=== PATIENT | male | born 1960 | race Caucasian/White ===

== ENCOUNTER 2020-02-21 14:54 | Outpatient (CLI) | payer OTHER, SELFPAY ==
[2020-02-21 15:21] LABS: Alanine Aminotransferase 28 U/L (4-50); Albumin Level 4.7 g/dL (3.5-5.1); Alkaline Phosphatase 63 U/L (38-126); Anion Gap 8 mmol/L (8-16); Aspartate Amino Transferase 24 U/L (17-59); Bilirubin,Total 0.7 mg/dL (0.2-1.3); Blood Urea Nitrogen 16 mg/dL (9-20); Calcium 9.3 mg/dL (8.4-10.2); Carbon Dioxide 23 mmol/L (22-30); Chloride 106 mmol/L (98-107); Cholesterol 192 mg/dL (0-200); Estimated Glomerular Filt Rate > 60; Glucose 135 mg/dL (75-110); HDL Direct 54 mg/dL; Potassium 3.9 mmol/L (3.4-5.0); Sodium 137 mmol/L (137-145); Triglycerides 83 mg/dL (<150)
[2020-02-21 15:25] LABS: Hemoglobin A1C 7.7 % (<5.7)
[2020-02-21 15:32] LABS: LDL Cholesterol Direct 122 mg/dL
[2020-02-21 15:40] LABS: Microalbumin Urine Random 6.4 mg/L (0-16.7)
[2020-02-21 15:52] LABS: Prostate Specific Antigen 1.2 ng/mL (< OR = 4.0)
== END 2020-02-21 14:55 | disposition home or self-care (01) ==
PROVIDERS: PCP Internal Medicine; Visit Provider Internal Medicine
DX: E11.65 Type 2 diabetes mellitus with hyperglycemia (principal); I10 Essential (primary) hypertension; E78.5 Hyperlipidemia, unspecified; Z12.5 Encounter for screening for malignant neoplasm of prostate
CPT/HCPCS: 36415; 80053; 80061; 82043; 83036; 84153; G0103

== ENCOUNTER 2020-09-15 09:10 | Outpatient (CLI) | payer OTHER, SELFPAY ==
[2020-09-15 09:42] LABS: Hemoglobin A1C 8.1 % (<5.7)
[2020-09-15 09:59] LABS: Alanine Aminotransferase 35 U/L (4-50); Albumin Level 4.1 g/dL (3.5-5.1); Alkaline Phosphatase 68 U/L (38-126); Anion Gap 5 mmol/L (8-16); Aspartate Amino Transferase 26 U/L (17-59); Bilirubin,Total 0.6 mg/dL (0.2-1.3); Blood Urea Nitrogen 15 mg/dL (9-20); Carbon Dioxide 30 mmol/L (22-30); Chloride 101 mmol/L (98-107); Cholesterol 202 mg/dL (0-200); Estimated Glomerular Filt Rate > 60; Glucose 235 mg/dL (75-110); HDL Direct 41 mg/dL; Potassium 4.2 mmol/L (3.4-5.0); Sodium 136 mmol/L (137-145); Triglycerides 137 mg/dL (<150)
[2020-09-15 10:10] LABS: LDL Cholesterol Direct 135 mg/dL
== END 2020-09-15 09:11 | disposition home or self-care (01) ==
LOC: ANHLAB 09:12
PROVIDERS: PCP Internal Medicine; Visit Provider Internal Medicine
DX: E11.65 Type 2 diabetes mellitus with hyperglycemia (principal); I10 Essential (primary) hypertension; E78.5 Hyperlipidemia, unspecified
CPT/HCPCS: 36415; 80053; 80061; 83036

== ENCOUNTER 2020-12-21 09:43 | Outpatient (CLI) | payer OTHER, SELFPAY ==
[2020-12-21 10:17] LABS: Alanine Aminotransferase 60 U/L (4-50); Albumin Level 4.6 g/dL (3.5-5.1); Alkaline Phosphatase 69 U/L (38-126); Anion Gap 8 mmol/L (8-16); Aspartate Amino Transferase 45 U/L (17-59); Bilirubin,Total 0.4 mg/dL (0.2-1.3); Blood Urea Nitrogen 14 mg/dL (9-20); Calcium 9.5 mg/dL (8.4-10.2); Carbon Dioxide 26 mmol/L (22-30); Chloride 105 mmol/L (98-107); Cholesterol 176 mg/dL (0-200); Estimated Glomerular Filt Rate > 60; Glucose 200 mg/dL (75-110); HDL Direct 43 mg/dL; Potassium 4.4 mmol/L (3.4-5.0); Sodium 139 mmol/L (137-145); Triglycerides 116 mg/dL (<150)
[2020-12-21 10:28] LABS: LDL Cholesterol Direct 104 mg/dL
[2020-12-21 11:19] LABS: Prostate Specific Antigen 1.2 ng/mL (< OR = 4.0)
[2020-12-21 11:56] LABS: Hemoglobin A1C 9.1 % (<5.7)
== END 2020-12-21 09:44 | disposition home or self-care (01) ==
LOC: ANHLAB 09:46
PROVIDERS: PCP Internal Medicine; Visit Provider Internal Medicine
DX: I10 Essential (primary) hypertension (principal); Z79.899 Other long term (current) drug therapy; E78.5 Hyperlipidemia, unspecified; Z12.5 Encounter for screening for malignant neoplasm of prostate; E11.65 Type 2 diabetes mellitus with hyperglycemia
CPT/HCPCS: 36415; 80053; 80061; 83036; 84153; G0103

== ENCOUNTER 2021-05-18 08:47 | Outpatient (CLI) | payer OTHER, SELFPAY ==
[2021-05-18 09:44] LABS: Alanine Aminotransferase 56 U/L (4-50); Albumin Level 4.4 g/dL (3.5-5.1); Alkaline Phosphatase 86 U/L (38-126); Anion Gap 8 mmol/L (8-16); Aspartate Amino Transferase 32 U/L (17-59); Bilirubin,Total 0.3 mg/dL (0.2-1.3); Blood Urea Nitrogen 27 mg/dL (9-20); Calcium 9.2 mg/dL (8.4-10.2); Carbon Dioxide 22 mmol/L (22-30); Chloride 105 mmol/L (98-107); Cholesterol 204 mg/dL (0-200); Estimated Glomerular Filt Rate > 60; Glucose 199 mg/dL (65-110); HDL Direct 39 mg/dL; Potassium 4.2 mmol/L (3.4-5.0); Sodium 135 mmol/L (137-145); Triglycerides 189 mg/dL (<150)
[2021-05-18 09:55] LABS: LDL Cholesterol Direct 130 mg/dL
[2021-05-18 11:53] LABS: Hemoglobin A1C 7.7 % (<5.7)
== END 2021-05-18 08:48 | disposition home or self-care (01) ==
LOC: ANHLAB 08:49
PROVIDERS: PCP Internal Medicine; Visit Provider Internal Medicine
DX: E11.65 Type 2 diabetes mellitus with hyperglycemia (principal); I10 Essential (primary) hypertension; E78.5 Hyperlipidemia, unspecified
CPT/HCPCS: 36415; 80053; 80061; 83036

== ENCOUNTER 2021-11-27 14:58 | Outpatient (CLI) | payer OTHER, SELFPAY ==
[2021-11-27 16:47] LABS: Alanine Aminotransferase 34 U/L (6-50); Albumin Level 4.5 g/dL (3.5-5.1); Alkaline Phosphatase 59 U/L (38-126); Anion Gap 8 mmol/L (8-16); Aspartate Amino Transferase 30 U/L (17-59); Bilirubin,Total 0.7 mg/dL (0.2-1.3); Blood Urea Nitrogen 16 mg/dL (9-20); Calcium 8.9 mg/dL (8.4-10.2); Carbon Dioxide 21 mmol/L (22-30); Chloride 108 mmol/L (98-107); Cholesterol 162 mg/dL (0-200); Estimated Glomerular Filt Rate > 60; Glucose 118 mg/dL (65-110); HDL Direct 49 mg/dL; Potassium 3.9 mmol/L (3.4-5.0); Sodium 137 mmol/L (137-145); Triglycerides 104 mg/dL (<150)
[2021-11-27 16:58] LABS: LDL Cholesterol Direct 92 mg/dL
[2021-11-27 17:26] LABS: Creatinine Urine 106.5 mg/dL
[2021-11-27 21:13] LABS: Hemoglobin A1C 6.6 % (<5.7)
[2021-11-27 21:19] LABS: Microalbumin Urine Random < 6.0 mg/L (0-16.7)
[2021-11-27 21:20] LABS: MALB Creatinine Ratio < 5.6 mg/g (0-30)
== END 2021-11-27 14:59 | disposition home or self-care (01) ==
LOC: ANHLAB 15:00
PROVIDERS: PCP Internal Medicine; Visit Provider Internal Medicine
DX: E78.5 Hyperlipidemia, unspecified (principal); E11.65 Type 2 diabetes mellitus with hyperglycemia; I10 Essential (primary) hypertension; Z51.81 Encounter for therapeutic drug level monitoring; Z79.899 Other long term (current) drug therapy
CPT/HCPCS: 36415; 80053; 80061; 82043; 83036

== ENCOUNTER 2022-07-01 12:39 | Outpatient (CLI) | payer OTHER, SELFPAY ==
[2022-07-01 19:03] LABS: Alanine Aminotransferase 30 U/L (6-50); Albumin Level 4.7 g/dL (3.5-5.1); Alkaline Phosphatase 71 U/L (38-126); Anion Gap 7 mmol/L (8-16); Aspartate Amino Transferase 25 U/L (17-59); Bilirubin,Total 0.4 mg/dL (0.2-1.3); Blood Urea Nitrogen 16 mg/dL (9-20); Calcium 9.2 mg/dL (8.4-10.2); Carbon Dioxide 26 mmol/L (22-30); Chloride 106 mmol/L (98-107); Cholesterol 177 mg/dL (0-200); Estimated Glomerular Filt Rate > 60; Glucose 127 mg/dL (65-110); HDL Direct 47 mg/dL; Potassium 3.8 mmol/L (3.4-5.0); Sodium 139 mmol/L (137-145); Triglycerides 122 mg/dL (<150)
[2022-07-01 19:14] LABS: LDL Cholesterol Direct 99 mg/dL
[2022-07-01 19:37] LABS: Prostate Specific Antigen 1.5 ng/mL (< OR = 4.0)
[2022-07-01 19:39] LABS: Hemoglobin A1C 6.6 % (<5.7)
== END 2022-07-01 12:40 | disposition home or self-care (01) ==
LOC: ANHLAB 12:41
PROVIDERS: PCP Internal Medicine; Visit Provider Internal Medicine
DX: Z51.81 Encounter for therapeutic drug level monitoring (principal); Z79.899 Other long term (current) drug therapy; I10 Essential (primary) hypertension; E11.65 Type 2 diabetes mellitus with hyperglycemia; E78.5 Hyperlipidemia, unspecified; Z12.5 Encounter for screening for malignant neoplasm of prostate
CPT/HCPCS: 36415; 80053; 80061; 83036; 84153; G0103

== ENCOUNTER 2024-07-20 07:39 | Outpatient (CLI) | payer OTHER, SELFPAY ==
[2024-07-20 08:15] LABS: Hemoglobin A1C 5.7 % (<5.7)
[2024-07-20 08:16] LABS: Alanine Aminotransferase 30 U/L (6-50); Albumin Level 4.6 g/dL (3.5-5.1); Alkaline Phosphatase 57 U/L (38-126); Anion Gap 9 mmol/L (4-12); Aspartate Amino Transferase 28 U/L (17-59); Bilirubin,Total 0.8 mg/dL (0.2-1.3); Blood Urea Nitrogen 18 mg/dL (9-20); Calcium 9.4 mg/dL (8.4-10.2); Carbon Dioxide 25 mmol/L (22-30); Chloride 104 mmol/L (98-107); Cholesterol 189 mg/dL (0-200); Estimated Glomerular Filt Rate > 60; Glucose 146 mg/dL (65-110); HDL Direct 47 mg/dL; Potassium 3.8 mmol/L (3.4-5.0); Sodium 138 mmol/L (137-145); Triglycerides 88 mg/dL (<150)
[2024-07-20 08:27] LABS: LDL Cholesterol Direct 123 mg/dL
--- OUTSIDE RECORDS SUMMARY | 2024-07-21 21:17 | XMS_ITS ---
Author Organization [facility] Address [address] [place] [address] Phone Care Team Providers Care Business Transformation Analyst Name Role Phone Unavailable Unavailable Unavailable Plan of Treatment No Plan of Treatment Recorded Assessments Includes: Assessments for all patient encounters No Assessments Recorded Medical Equipment - Implanted Devices Includes: Current and historical Devices No Medical Equipment Recorded Medications Administered Includes: Administered Medications in patient's chart No Administered Medications Recorded Results Includes: Results from 07/21/2023 through 07/21/2024 No Results Recorded For Specified Dates History of Present Illness History of Present Illness not supported for this document type No History of Present Illness Recorded Social History No Social History Recorded - Smoking Status Unknown Medical History Includes: Medical History in patient's chart No Medical History Recorded Family History Includes: Family History in patient's chart No Family History Recorded Review of Systems Review of Systems not supported for this document type No Review of Systems Recorded Mental Status No Mental Status Recorded Functional Status No Functional Status Recorded Physical Exam Physical Exam not supported for this document type No Physical Exam Recorded Clinical Notes Includes: Signed Clinical Notes starting from 07/18/2022 No Clinical Notes Recorded
--- OUTSIDE RECORDS SUMMARY | 2024-07-21 21:17 | XMS_ITS | Clinical Summary ---
Author Organization [facility] Address [address] [place] [address] Phone Care Team Providers Care Scale Shooter Name Role Phone Unavailable Unavailable Unavailable Reason for Visit and Chief Complaint NEW PATIENT VISIT Plan of Treatment No Plan of Treatment Recorded Assessments Includes: Assessments from this encounter No Assessments Recorded Medical Equipment - Implanted Devices Includes: Current Devices No Medical Equipment Recorded Medications Administered Includes: Administered Medications from this encounter No Administered Medications Recorded Results Includes: Results discussed during this encounter No Results Recorded For Specified Dates History of Present Illness Includes: History of Present Illness from this encounter No History of Present Illness Recorded Social History No Social History Recorded - Smoking Status Unknown Medical History Includes: Medical History addressed during this encounter No Medical History Recorded Family History Includes: Family History addressed during this encounter No Family History Recorded Review of Systems Includes: Review of Systems from this encounter No Review of Systems Recorded Mental Status Includes: Mental Status from this encounter No Mental Status Recorded Functional Status Includes: Functional Status from this encounter No Functional Status Recorded Physical Exam Includes: Physical Exam from this encounter No Physical Exam Recorded Encounters Encounter Provider Location Date Check-In Time Check- Out Time Diagnosis NEW PATIENT VISIT [facility] 1:15PM 11:59PM Clinical Notes Includes: Clinical Notes from this encounter No Clinical Notes Recorded
--- OUTSIDE RECORDS SUMMARY | 2024-07-21 21:17 | XMS_ITS ---
Care Plan - [facility] Created on: July 21, 2024 CHARLES WESLEY : 1960 Sex: Male Author Organization [facility] Address [address] [place] [address] Phone Care Team Providers Care Server Software Engineer Name Role Phone Unavailable Unavailable Unavailable
--- OUTSIDE RECORDS SUMMARY | 2024-07-21 21:17 | XMS_ITS | Clinical Summary ---
Author Organization [facility] Address [address] [place] [address]. [place], [place] [id number] [place] [id number] Care Team Providers Care Stick Welder Name Role Phone Unavailable Primary Care Provider Unavailabl e Social History Tobacco Use Types Packs/Day Years Used Date Smoking Tobacco: Never Assessed Sex and Gender Information Value Date Recorded Sex Assigned at Not on file Legal Sex Male 7:01 PM CDT Gender Identity Not on file Sexual Orientation Not on file Plan of Treatment Health Maintenance Due Date Last Done Comments Colorectal Cancer Screening Colonoscopy (10 Years) 1960 Annual Physical 10/29/1962 Hepatitis C 10/29/1977 DTaP, Tdap and Td Vaccines ( 1 - Tdap) 10/29/1978 Zoster Vaccines (1 of 2) 10/29/2009 COVID-19 Vaccine ( - 2023-2 5 season) 2024 Influenza Adult (#1) 2024 RSV Immunization or 60+ Years (1 - 1-dose 75+ series) 10/29/2034 Meningococcal Vaccine Aged Out No lamonte skyler eligible based on patient's age to complete this topic Pneumococcal Vaccine: Pediat rics (0 to 5 Years) and At-Risk Patients (6 to 64 Years) Aged Out No longer eligible b ased on patient's age to complete this topic RSV Immunizations Under 20 Months Aged Out No longer eligible based on patient's age to complete this topic
--- OUTSIDE RECORDS SUMMARY | 2024-07-21 21:18 | XMS_ITS ---
Author Organization [facility] [employer] Address [address] [place] [address] Care Team Providers Care Certified Travel Counselor Name Role Phone Edith Snider Unavailable [phone] Allergies No Known Allergies REASON FOR VISIT follow up 6 months Medications Medication SIG (Take, Route, Frequency, Duration) Notes Start Date End Date Status amLODIPine Besylate 10 MG Oral 08/31/2023 Active ARIPiprazole 5 MG 1 tablet at bedtime Orally Once a day for 90 days 03/01/2024 Active LORazepam 0.5 MG Oral 08/31/2023 Ac tive Mounjaro 5 MG/0.5ML Subcutaneous *Reorder fro m Med[employer]pan for eRx and Interaction Alerts* 08/31/2023 Active hydrOXYzine HCl 50 MG 1 tablet Oral three times a day for 90 days d/c 25 mg dose 08/31/2023 Active Social History Tobacco Use: Social History Observation Description Date Details (start date - stop date) Never Smoker NA - NA Sex Assigned At : Social History Observation Description Sex Assigned At Male Tobacco Control (Standard) Question Answer Notes Tobacco use: Nonsmoker Problems Problem Type SNOMED Code ICD Code Onset Dates Problem Status W/U Status Risk Notes Problem Generalized anxiety disorder (65821534) Generalized anxiety disorder (F41.1) 4 Active confirmed Problem Mild recurrent major depression (45362290) Major depressive disorder, recurrent, mild (F33.0) 4 Active confirmed Problem Intermittent explosive disorder (14549875) Intermittent explosive disorder (F63.81) 4 Active confirmed Problem 890152710 Marijuana use (F12.90) Active confirmed Problem Long-term current use of drug therapy (576252164) [facility] [place] [facility] (Z79.899) 4 Active confirmed Vital Signs Blood pressure systolic 161 mm Hg 03/01/20 24 Blood pressure diastolic 101 mm Hg 024 Heart Rate 97 /min 03/01/2024 Height 68.00 in 03/01/2024 Weight 216 lbs 03/01/2024 BMI 32.84 kg/m2 03/01/2024 Height-cm 172.72 cm 03/01/2024 Weight-kg 97.98 kg 03/01/2024 Encounters Encounter Location Date Provider Diagnosis [facility] [address] [place] [address] 03/01/2024 Edith Snider Generalized anxiety disorder F41.1 ; Major depressive disorder, recurrent, mild F33.0 ; Intermittent explosive disorder F63.81 ; Marijuana use F12.90 and [facility] [place] drug therapy Z79.899 Assessments Encounter Date Diagnosis (ICD Code) Assessment Notes Treatment Notes Treatment Clinical Notes Section Notes 03/01/2024 Generalized anxiety disorder (ICD-10 - F41.1) 1. Mild recurrent major depression -obtain labs PCP monitor educated on all medications, benefits, side effects and risk, and educated on depression, anxiety, and mood d/o and educated on compliance of medications, metabolic and movement d/o education appointment's, continue therapy discussion with patient about course of treatmentand patient instructions. Recommend decrease/stop cannabis use as it can negatively impact mood, motivation, anxiety, sleep, focus/concentratio n/memory (vigilance, elasticity, processing and attention); can also contribute to development of psychosis. Cannabis/marijuana information: http_s://che.nih. gov/publications/d rugfacts/cannabis- marijuana http_s://www.Sitedesk.Post-i/cannabi o-omq-chdhtwlc-mar ijuana-adhd/ http_s://www.murray. org/Equkj-Cbxboj-P llness/Mental-Heal th-Conditions http_s://psychcent Actimo.com/depression /jza-zfgjeefhy-cjy hhdrf-dj-ybbyezqiq n#treatments http__s://www.nimh .nih.gov/health/to pics/mental-health -medications http__s://www.murray .org/About-Mental- Illness/Treatments /Rmormd-Vzfxzl-Ami ications educated on all medications, benefits, side effects and risk, and educated on depression, anxiety, and ADHD, mood d/o and educated on compliance of medications, metabolic and movement d/o education appointment's, continue therapy discussion with patient about course of treatment and patient instructions. education on serotonin syndrome Discussed and educated pt regarding benzodiazepines are generally not intended for prolonged use and that use can cause tolerance, dependence, depression, and associated memory issues including dementias (this list is not exhaustive). Benzodiazepine use is generally not recommended concurrently with pain medications and/or other controlled substances 2. Generalized anxiety disorder - no control substance prescribed by [facility] r/t cannabis use daily Increase Vistaril 50 mg three times a day for anxiety patient been taking Benzo mg daily PCP prescribed and not prescribing presently not taking on weekends only work days,- patient reported has new PCP- Dr. Sesay Discussed and educated pt regarding benzodiazepines are generally not intended for prolonged use and that use can cause tolerance, dependence, depression, and associated memory issues including dementias (this list is not exhaustive). Benzodiazepine use is generally not recommended concurrently with pain medications and/or other controlled substances due to increased risks of profound sedation, respiratory depression, coma, and even . They are not to be used with any alcohol, as this combination can also be lethal. Patient was provided caution pcp prescribed Lorazepam 3. Intermittent explosive disorder - discuss and educated on options rx- will add ABILIFY 5 MG AT BEDTIME Second generation antipsychotics (SGAs) have metabolic syndrome issues with weight gain, increase in prolactin, increased waist circumference, increased lipids, and increased glucose. Thus routine monitoring of weight, metabolic labs, etc. is indicated. A general rank ordering of antipsychotics that have the greatest to the least risk of metabolic effects is olanzapine, quetiapine, risperidone, ziprasidone, and aripiprazole. However, weight gain can occur with all of these drugs and considerable variability exists among patients receiving the same drug regarding the risk of metabolic effects. Anti-psychotic agents not only increase the risk of metabolic disorder, they also increase the risk of CVA, akathisia, and movement disorders including EPS or tardive dyskinesia (more common with first generation antipsychotics) and more. Elderly- discussed risks, cognition, sedation, falls, metabolic, movement and atypical antipsychotics carry a black-box warning for increased risk of and cerebrovascular events in dementia. Medication Management and Follow-Up - Plan: - Schedule follow-up appointments every 1-3 months to monitor the patient's response to the medication regimen. - Reinforce the importance of avoiding recreational drug use due to potential neurotoxicity and interactions with prescribed medications. 4. Long-term drug therapy -no control substance prescribed by [facility] r/t cannabis use daily 03/01/2024 Major depressive disorder, recurrent, mild (ICD-10 - F33.0) 1. Mild recurrent major depression -obtain labs PCP monitor educated on all medications, benefits, side effects and risk, and educated on depression, anxiety, and mood d/o and educated on compliance of medications, metabolic and movement d/o education appointment's, continue therapy discussion with patient about course of treatmentand patient instructions. Recommend decrease/stop cannabis use as it can negatively impact mood, motivation, anxiety, sleep, focus/concentratio n/memory (vigilance, elasticity, processing and attention); can also contribute to development of psychosis. Cannabis/marijuana information: http_s://che.nih. gov/publications/d rugfacts/cannabis- marijuana http_s://www.TheTakes/cannabi l-fwo-ifmddebv-mar ijuana-adhd/ http_s://www.murray. org/Mfwpi-Cqtsws-D llness/Mental-Heal th-Conditions http_s://Novariant.com/depression /mcy-jddtbaats-wer qsfev-ke-tfqbbetdh n#treatments http__s://www.nimh .nih.gov/health/to pics/mental-health -medications http__s://www.murray .org/About-Mental- Illness/Treatments /Rvnxkw-Vaipac-Isl ications educated on all medications, benefits, side effects and risk, and educated on depression, anxiety, and ADHD, mood d/o and educated on compliance of medications, metabolic and movement d/o education appointment's, continue therapy discussion with patient about course of treatment and patient instructions. education on serotonin syndrome Discussed and educated pt regarding benzodiazepines are generally not intended for prolonged use and that use can cause tolerance, dependence, depression, and associated memory issues including dementias (this list is not exhaustive). Benzodiazepine use is generally not recommended concurrently with pain medications and/or other controlled substances 2. Generalized anxiety disorder - no control substance prescribed by [facility] r/t cannabis use daily Increase Vistaril 50 mg three times a day for anxiety patient been taking Benzo mg daily PCP prescribed and not prescribing presently not taking on weekends only work days,- patient reported has new PCP- Dr. Sesay Discussed and educated pt regarding benzodiazepines are generally not intended for prolonged use and that use can cause tolerance, dependence, depression, and associated memory issues including dementias (this list is not exhaustive). Benzodiazepine use is generally not recommended concurrently with pain medications and/or other controlled substances due to increased risks of profound sedation, respiratory depression, coma, and even . They are not to be used with any alcohol, as this combination can also be lethal. Patient was provided caution pcp prescribed Lorazepam 3. Intermittent explosive disorder - discuss and educated on options rx- will add ABILIFY 5 MG AT BEDTIME Second generation antipsychotics (SGAs) have metabolic syndrome issues with weight gain, increase in prolactin, increased waist circumference, increased lipids, and increased glucose. Thus routine monitoring of weight, metabolic labs, etc. is indicated. A general rank ordering of antipsychotics that have the greatest to the least risk of metabolic effects is olanzapine, quetiapine, risperidone, ziprasidone, and aripiprazole. However, weight gain can occur with all of these drugs and considerable variability exists among patients receiving the same drug regarding the risk of metabolic effects. Anti-psychotic agents not only increase the risk of metabolic disorder, they also increase the risk of CVA, akathisia, and movement disorders including EPS or tardive dyskinesia (more common with first generation antipsychotics) and more. Elderly- discussed risks, cognition, sedation, falls, metabolic, movement and atypical antipsychotics carry a black-box warning for increased risk of and cerebrovascular events in dementia. Medication Management and Follow-Up - Plan: - Schedule follow-up appointments every 1-3 months to monitor the patient's response to the medication regimen. - Reinforce the importance of avoiding recreational drug use due to potential neurotoxicity and interactions with prescribed medications. 4. Long-term drug therapy -no control substance prescribed by [facility] r/t cannabis use daily 03/01/2024 Intermittent explosive disorder (ICD-10 - F63.81) 1. Mild recurrent major depression -obtain labs PCP monitor educated on all medications, benefits, side effects and risk, and educated on depression, anxiety, and mood d/o and educated on compliance of medications, metabolic and movement d/o education appointment's, continue therapy discussion with patient about course of treatmentand patient instructions. Recommend decrease/stop cannabis use as it can negatively impact mood, motivation, anxiety, sleep, focus/concentratio n/memory (vigilance, elasticity, processing and attention); can also contribute to development of psychosis. Cannabis/marijuana information: http_s://che.nih. gov/publications/d rugfacts/cannabis- marijuana http_s://www.TheTakes/cannabi w-ufq-uepeqnqx-mar ijuana-adhd/ http_s://www.murray. org/Sjbet-Fdvend-J llness/Mental-Heal th-Conditions http_s://Planet Sushi/depression /rds-gkumtidff-svy ofeow-mt-plycfnjyb n#treatments http__s://www.nimh .nih.gov/health/to pics/mental-health -medications http__s://www.murray .org/About-Mental- Illness/Treatments /Hirrgs-Wapmqg-Zvp ications educated on all medications, benefits, side effects and risk, and educated on depression, anxiety, and ADHD, mood d/o and educated on compliance of medications, metabolic and movement d/o education appointment's, continue therapy discussion with patient about course of treatment and patient instructions. education on serotonin syndrome Discussed and educated pt regarding benzodiazepines are generally not intended for prolonged use and that use can cause tolerance, dependence, depression, and associated memory issues including dementias (this list is not exhaustive). Benzodiazepine use is generally not recommended concurrently with pain medications and/or other controlled substances 2. Generalized anxiety disorder - no control substance prescribed by [facility] r/t cannabis use daily Increase Vistaril 50 mg three times a day for anxiety patient been taking Benzo mg daily PCP prescribed and not prescribing presently not taking on weekends only work days,- patient reported has new PCP- Dr. Sesay Discussed and educated pt regarding benzodiazepines are generally not intended for prolonged use and that use can cause tolerance, dependence, depression, and associated memory issues including dementias (this list is not exhaustive). Benzodiazepine use is generally not recommended concurrently with pain medications and/or other controlled substances due to increased risks of profound sedation, respiratory depression, coma, and even . They are not to be used with any alcohol, as this combination can also be lethal. Patient was provided caution pcp prescribed Lorazepam 3. Intermittent explosive disorder - discuss and educated on options rx- will add ABILIFY 5 MG AT BEDTIME Second generation antipsychotics (SGAs) have metabolic syndrome issues with weight gain, increase in prolactin, increased waist circumference, increased lipids, and increased glucose. Thus routine monitoring of weight, metabolic labs, etc. is indicated. A general rank ordering of antipsychotics that have the greatest to the least risk of metabolic effects is olanzapine, quetiapine, risperidone, ziprasidone, and aripiprazole. However, weight gain can occur with all of these drugs and considerable variability exists among patients receiving the same drug regarding the risk of metabolic effects. Anti-psychotic agents not only increase the risk of metabolic disorder, they also increase the risk of CVA, akathisia, and movement disorders including EPS or tardive dyskinesia (more common with first generation antipsychotics) and more. Elderly- discussed risks, cognition, sedation, falls, metabolic, movement and atypical antipsychotics carry a black-box warning for increased risk of and cerebrovascular events in dementia. Medication Management and Follow-Up - Plan: - Schedule follow-up appointments every 1-3 months to monitor the patient's response to the medication regimen. - Reinforce the importance of avoiding recreational drug use due to potential neurotoxicity and interactions with prescribed medications. 4. Long-term drug therapy -no control substance prescribed by [facility] r/t cannabis use daily 03/01/2024 Marijuana use (ICD-10 - F12.90) 1. Mild recurrent major depression -obtain labs PCP monitor educated on all medications, benefits, side effects and risk, and educated on depression, anxiety, and mood d/o and educated on compliance of medications, metabolic and movement d/o education appointment's, continue therapy discussion with patient about course of treatmentand patient instructions. Recommend decrease/stop cannabis use as it can negatively impact mood, motivation, anxiety, sleep, focus/concentratio n/memory (vigilance, elasticity, processing and attention); can also contribute to development of psychosis. Cannabis/marijuana information: http_s://che.nih. gov/publications/d rugfacts/cannabis- marijuana http_s://www.Sitedesk.Post-i/cannabi f-xek-fcwtyfby-mar ijuana-adhd/ http_s://www.murray. org/Gnubq-Ynjjns-S llness/Mental-Heal th-Conditions http_s://psychcent Actimo.com/depression /hyp-fjbbeipmm-nkg rpmmm-vb-bncibxizg n#treatments http__s://www.nimh .nih.gov/health/to pics/mental-health -medications http__s://www.murray .org/About-Mental- Illness/Treatments /Kywrcs-Srwgzq-Ffp ications educated on all medications, benefits, side effects and risk, and educated on depression, anxiety, and ADHD, mood d/o and educated on compliance of medications, metabolic and movement d/o education appointment's, continue therapy discussion with patient about course of treatment and patient instructions. education on serotonin syndrome Discussed and educated pt regarding benzodiazepines are generally not intended for prolonged use and that use can cause tolerance, dependence, depression, and associated memory issues including dementias (this list is not exhaustive). Benzodiazepine use is generally not recommended concurrently with pain medications and/or other controlled substances 2. Generalized anxiety disorder - no control substance prescribed by [facility] r/t cannabis use daily Increase Vistaril 50 mg three times a day for anxiety patient been taking Benzo mg daily PCP prescribed and not prescribing presently not taking on weekends only work days,- patient reported has new PCP- Dr. Sesay Discussed and educated pt regarding benzodiazepines are generally not intended for prolonged use and that use can cause tolerance, dependence, depression, and associated memory issues including dementias (this list is not exhaustive). Benzodiazepine use is generally not recommended concurrently with pain medications and/or other controlled substances due to increased risks of profound sedation, respiratory depression, coma, and even . They are not to be used with any alcohol, as this combination can also be lethal. Patient was provided caution pcp prescribed Lorazepam 3. Intermittent explosive disorder - discuss and educated on options rx- will add ABILIFY 5 MG AT BEDTIME Second generation antipsychotics (SGAs) have metabolic syndrome issues with weight gain, increase in prolactin, increased waist circumference, increased lipids, and increased glucose. Thus routine monitoring of weight, metabolic labs, etc. is indicated. A general rank ordering of antipsychotics that have the greatest to the least risk of metabolic effects is olanzapine, quetiapine, risperidone, ziprasidone, and aripiprazole. However, weight gain can occur with all of these drugs and considerable variability exists among patients receiving the same drug regarding the risk of metabolic effects. Anti-psychotic agents not only increase the risk of metabolic disorder, they also increase the risk of CVA, akathisia, and movement disorders including EPS or tardive dyskinesia (more common with first generation antipsychotics) and more. Elderly- discussed risks, cognition, sedation, falls, metabolic, movement and atypical antipsychotics carry a black-box warning for increased risk of and cerebrovascular events in dementia. Medication Management and Follow-Up - Plan: - Schedule follow-up appointments every 1-3 months to monitor the patient's response to the medication regimen. - Reinforce the importance of avoiding recreational drug use due to potential neurotoxicity and interactions with prescribed medications. 4. Long-term drug therapy -no control substance prescribed by [facility] r/t cannabis use daily 03/01/2024 Other [employer] (current) drug therapy (ICD-10 - Z79.899) 1. Mild recurrent major depression -obtain labs PCP monitor educated on all medications, benefits, side effects and risk, and educated on depression, anxiety, and mood d/o and educated on compliance of medications, metabolic and movement d/o education appointment's, continue therapy discussion with patient about course of treatmentand patient instructions. Recommend decrease/stop cannabis use as it can negatively impact mood, motivation, anxiety, sleep, focus/concentratio n/memory (vigilance, elasticity, processing and attention); can also contribute to development of psychosis. Cannabis/marijuana information: http_s://che.nih. gov/publications/d rugfacts/cannabis- marijuana http_s://www.TheTakes/cannabi f-ejw-flfszmdb-mar ijuana-adhd/ http_s://www.murray. org/Dsoeh-Hiutfi-W llness/Mental-Heal th-Conditions http_s://psychcent Actimo.com/depression /wvz-hgchtfrzx-xkz cdlyw-sw-smxlcxzvt n#treatments http__s://www.nimh .nih.gov/health/to pics/mental-health -medications http__s://www.murray .org/About-Mental- Illness/Treatments /Zmqyyh-Eiubrx-Vmt ications educated on all medications, benefits, side effects and risk, and educated on depression, anxiety, and ADHD, mood d/o and educated on compliance of medications, metabolic and movement d/o education appointment's, continue therapy discussion with patient about course of treatment and patient instructions. education on serotonin syndrome Discussed and educated pt regarding benzodiazepines are generally not intended for prolonged use and that use can cause tolerance, dependence, depression, and associated memory issues including dementias (this list is not exhaustive). Benzodiazepine use is generally not recommended concurrently with pain medications and/or other controlled substances 2. Generalized anxiety disorder - no control substance prescribed by [facility] r/t cannabis use daily Increase Vistaril 50 mg three times a day for anxiety patient been taking Benzo mg daily PCP prescribed and not prescribing presently not taking on weekends only work days,- patient reported has new PCP- Dr. Sesay Discussed and educated pt regarding benzodiazepines are generally not intended for prolonged use and that use can cause tolerance, dependence, depression, and associated memory issues including dementias (this list is not exhaustive). Benzodiazepine use is generally not recommended concurrently with pain medications and/or other controlled substances due to increased risks of profound sedation, respiratory depression, coma, and even . They are not to be used with any alcohol, as this combination can also be lethal. Patient was provided caution pcp prescribed Lorazepam 3. Intermittent explosive disorder - discuss and educated on options rx- will add ABILIFY 5 MG AT BEDTIME Second generation antipsychotics (SGAs) have metabolic syndrome issues with weight gain, increase in prolactin, increased waist circumference, increased lipids, and increased glucose. Thus routine monitoring of weight, metabolic labs, etc. is indicated. A general rank ordering of antipsychotics that have the greatest to the least risk of metabolic effects is olanzapine, quetiapine, risperidone, ziprasidone, and aripiprazole. However, weight gain can occur with all of these drugs and considerable variability exists among patients receiving the same drug regarding the risk of metabolic effects. Anti-psychotic agents not only increase the risk of metabolic disorder, they also increase the risk of CVA, akathisia, and movement disorders including EPS or tardive dyskinesia (more common with first generation antipsychotics) and more. Elderly- discussed risks, cognition, sedation, falls, metabolic, movement and atypical antipsychotics carry a black-box warning for increased risk of and cerebrovascular events in dementia. Medication Management and Follow-Up - Plan: - Schedule follow-up appointments every 1-3 months to monitor the patient's response to the medication regimen. - Reinforce the importance of avoiding recreational drug use due to potential neurotoxicity and interactions with prescribed medications. 4. Long-term drug therapy -no control substance prescribed by [facility] r/t cannabis use daily 03/01/2024 Other referral to the local chapter or national office of the [employer] (2-542-768-339 0; http://www.alz .org), the [facility] ([facility]) (6-299-775-240 0; http://www.rosalie .nih.gov/Alzhe imers/), 1. Mild recurrent major depression -obtain labs PCP monitor educated on all medications, benefits, side effects and risk, and educated on depression, anxiety, and mood d/o and educated on compliance of medications, metabolic and movement d/o education appointment's, continue therapy discussion with patient about course of treatmentand patient instructions. Recommend decrease/stop cannabis use as it can negatively impact mood, motivation, anxiety, sleep, focus/concentratio n/memory (vigilance, elasticity, processing and attention); can also contribute to development of psychosis. Cannabis/marijuana information: http_s://che.nih. gov/publications/d rugfacts/cannabis- marijuana http_s://www.TheTakes/cannabi b-ljr-gsxjjvar-mar ijuana-adhd/ http_s://www.murray. org/Awqhp-Wrjwiz-E llness/Mental-Heal th-Conditions http_s://psychcent Actimo.com/depression /fib-kcktcjuua-znn gksyx-pe-pqxtkgkgb n#treatments http__s://www.nimh .nih.gov/health/to pics/mental-health -medications http__s://www.murray .org/About-Mental- Illness/Treatments /Bnzzkl-Lajipq-Amp ications educated on all medications, benefits, side effects and risk, and educated on depression, anxiety, and ADHD, mood d/o and educated on compliance of medications, metabolic and movement d/o education appointment's, continue therapy discussion with patient about course of treatment and patient instructions. education on serotonin syndrome Discussed and educated pt regarding benzodiazepines are generally not intended for prolonged use and that use can cause tolerance, dependence, depression, and associated memory issues including dementias (this list is not exhaustive). Benzodiazepine use is generally not recommended concurrently with pain medications and/or other controlled substances 2. Generalized anxiety disorder - no control substance prescribed by [facility] r/t cannabis use daily Increase Vistaril 50 mg three times a day for anxiety patient been taking Benzo mg daily PCP prescribed and not prescribing presently not taking on weekends only work days,- patient reported has new PCP- Dr. Sesay Discussed and educated pt regarding benzodiazepines are generally not intended for prolonged use and that use can cause tolerance, dependence, depression, and associated memory issues including dementias (this list is not exhaustive). Benzodiazepine use is generally not recommended concurrently with pain medications and/or other controlled substances due to increased risks of profound sedation, respiratory depression, coma, and even . They are not to be used with any alcohol, as this combination can also be lethal. Patient was provided caution pcp prescribed Lorazepam 3. Intermittent explosive disorder - discuss and educated on options rx- will add ABILIFY 5 MG AT BEDTIME Second generation antipsychotics (SGAs) have metabolic syndrome issues with weight gain, increase in prolactin, increased waist circumference, increased lipids, and increased glucose. Thus routine monitoring of weight, metabolic labs, etc. is indicated. A general rank ordering of antipsychotics that have the greatest to the least risk of metabolic effects is olanzapine, quetiapine, risperidone, ziprasidone, and aripiprazole. However, weight gain can occur with all of these drugs and considerable variability exists among patients receiving the same drug regarding the risk of metabolic effects. Anti-psychotic agents not only increase the risk of metabolic disorder, they also increase the risk of CVA, akathisia, and movement disorders including EPS or tardive dyskinesia (more common with first generation antipsychotics) and more. Elderly- discussed risks, cognition, sedation, falls, metabolic, movement and atypical antipsychotics carry a black-box warning for increased risk of and cerebrovascular events in dementia. Medication Management and Follow-Up - Plan: - Schedule follow-up appointments every 1-3 months to monitor the patient's response to the medication regimen. - Reinforce the importance of avoiding recreational drug use due to potential neurotoxicity and interactions with prescribed medications. 4. Long-term drug therapy -no control substance prescribed by [facility] r/t cannabis use daily Plan Of Treatment Medication Medication Name Sig Start Date Stop Date Notes ARIPiprazole 5 MG 1 tablet at bedtime Orally Once a day for 90 days 03/01/2024 hydrOXYzine HCl 50 MG 1 tablet Oral thre e times a day for 90 days 08/31/2023 d/c 25 mg dose Treatment Notes Assessment Notes Other referral to the local chapter or national office of the Alzheimer's Association ( ; http://www.alz.org), the Alzheimer's Disease Education and Referral Center (ADEAR) ( ; http://www.rosalie.nih.gov/Alzheimers/), Next Appt Details Follow Up: 6 Weeks, Reason: FU Abiliesteban Provider Name:Edith Snider , 10/11/2024 02:30:00 PM, [facility], [facility] [address], [place], [address], Progress Notes * CHARLES WESLEY RDOB: [birth year] (63 yo M)Acc No.[id number]:03/01/2024 Patient:?CHARLES WESLEY Provider:?EDITH SNIDER PMHNP :1960???Age:63 Y???Sex:Male Antoine e:03/01/2024 Address:[address] [place], [place] [id number] Subjective: * Chief Complaints: * ???1. Follow up 6 months. * HPI: ???History of Presenting Problem:? Generalized Anxiety DisorderReported by?patient.Onset/Timing:?20 years Severity: moderate Context:?depression Modifying Factors:?psychotropic medication Notes: This is a 63 year old white male follow up I been having anxiety and anger again triggers goign to [facility] and doctors and appts been cxl when my doctor left and they may not be able to give me rx, they can not get me in until 06/21, I got another provider 03/13/24, they would not fiil one rx until I am seen, I am easy agitated even at work I take Vistaril tid and other PCP gives me Benzo, depression none, I still plan to retired in 8 months 10/29/24,??no physical aggression, I have notice friends passing away at my age,?I sleep good average 7-8 pm- 4 am and bathroom in night?and I feel no sad or down, no hopeless or helpless and concentrate and focus good, motivation?and interest not there much since close to long term, I be happy at home and will be working,?no psychosis no jaguar no SI/HI,? DM on Mounjaro and weight loss and A1C unsure and not checked BS I am not eating much, nothing taste good and always full. denies SI/HI no plans or intent no thoughts harm self or others no past attempts, no FH etoh- very little couple times a month shot Tequila Smoking- denies labs- PCP? labs drugs cannabis reported works for me Major Depressive DisorderReported by?patient.Onset/Timing:?20 years Severity:?mild; Context:?history of depression Modifying Factors:?psychotropic medication Jaguar Reported by?patient.Notes:none Psychosis Reported by?patient.Notes:NONE Psychotherapy InterventionReported by?patient. Notes:none rx HX Buspar (mess with head), Xanax, Celexa Seroquel (reported not tolerated), Depakote (sweat), Cymbalta (sweat), Lamotrigine, Vistaril,. * ROS:?Patient reports?dry mouth. ?He reports?nausea (on Mounjaro)?but reports no abdominal pain, no vomiting, no constipation, no diarrhea, and no GERD. He reports?anxiety?but reports no depression,? sleep disturbances, feeling safe in a relationship, no alcohol abuse, no hallucinations, no suicidal thoughts, no mood swings,? agitation,? He reports no fever, no significant weight gain, and? weight loss on Mounjaro? He reports wears glasses/contact lenses. He reports no chest pain, no arm pain on exertion, no shortness of breath when walking, no shortness of breath when lying down, no palpitations, no known heart murmur, and no ankle swelling. He reports no incontinence, no difficulty urinating, no hematuria, and no increased frequency. * Medical History:?Problems: G eneralized anxiety disorder, Intermittent explosive disorder, Long-term drug therapy, Mild recurrent major depression, Recurrent major depressive episodes, moderate, ,. * Surgical History:?Any surgic al history . * Hospitalization/Major Diagno stic Procedure:?Denies Past Hospitalization. * Family History:?Unspecified Relation: Anxiety disorder .?Mother: Malignant neoplasm of brain .? * Social History:?Tobacco Use:?Tobacco Control (Standard)?Tobacco use:?Nonsmoker.?Migrated Social History:?Migrated Social History: Alcohol Intake: None 03/23/2023,Tobacco Years: Never smoker 01/24/2019,Smoking Status: 0 03/23/2023. * Medications:?Taking Mounjaro 5 MG/0.5ML Solution Pen-injector Subcutaneous , Notes to Pharmacist: *[facility] for eRx and Interaction Alerts*, Taking LORazepam 0.5 MG Tablet Oral , Taking hydrOXYzine HCl 25 MG Tablet Oral , Taking amLODIPine Besylate 10 MG Tablet Oral , Discontinued Glimepiride 2 MG Tablet Oral , Discontinued ALPRAZolam 0.5 MG Tablet Oral , Discontinued metFORMIN HCl 1000 MG Tablet Oral , Discontinued Divalproex Sodium 250 MG Tablet Delayed Release Oral , Discontinued ALPRAZolam 1 MG Tablet Oral , Discontinued Valsartan 320 MG Tablet Oral , Discontinued Ezetimibe 10 MG Tablet Oral , Discontinued Mounjaro 2.5 MG/0.5ML Solution Pen-injector Subcutaneous , Notes to Pharmacist: *Reorder from [facility] for eRx and Interaction Alerts*, Discontinued DULoxetine HCl 60 MG Capsule Delayed Release Particles Oral , Discontinued DULoxetine HCl 30 MG Capsule Delayed Release Particles Oral , Discontinued Jardiance 25 MG Tablet Oral , Medication List reviewed and reconciled with the patient * Allergies:?N.K.D.A. Objective: * Vitals:?BP:161/101mm Hg, HR: 97/min, Wt:216lbs, Wt-k.98 kg, Ht: 68.00 in, Ht-cm: 172.72 cm, BMI:32.84Index, Body Surface Area: 2.17. * Examination: ???Functional Assessment: ?Santo Index of ADL?.?Physical Functioning?.?1 point for independence, 0 for help. ???Psychiatry: ?Dementia?.?Appearance:?well-groomed, well-nourished, appears stated age.?Abnormal body movements:?none.?Affect / mood:?appropriate, full range.?Aggression:?low.?Anger control:?good.?Attention:?good.?Attitude:?cooperative.?Homicidal ideation:?none.?Suicidal ideation:?none.?Memory status:?no impairment noted.?Degree of awareness of surroundings:?within normal limits.?Delusions:?no.?Hallucinations:?no.?Impulse control:?good.?Insight:?good.?Intellectual functioning:?average.?Comprehension - Intellectual function:?average.?Judgement:?good.?Orientation:?awake, alert and oriented x 3.?Perceptual disorders:?no perceptual disorder noted.?Psychomotor activity:?within normal range.?Sexual impulse control:?good.?Speech / language:?appropriate pitch/modulation, clear and coherent, normal rate, volume, and articulation (RVR), proper grammar used.?Thought content:?appropriate.?Thought process:?intact.? Assessment: * Assessment: 1.?Generalized anxiety disor cassidy - F41.1 (Primary)???2.?Major depressive disorder, recurrent, mild - F33.0???3.?Intermittent explosive disorder - F63.81???4.?Marijuana use - F12.90???5.?Other [facility]current[facility] drug therapy - Z79.899??? 1. Mild recurrent major depr ession?-obtain labs PCP monitor educated on all medications, benefits, side effects and risk, and educated on depression, anxiety, and mood d/o and educated on compliance of medications, metabolic and movement d/o education appointment's, continue therapy discussion with patient about course of treatmentand patient instructions. Recommend decrease/stop cannabis use as it can negatively impact mood, motivation, anxiety, sleep, focus/concentration/memory (vigilance, elasticity, processing and attention); can also contribute to development of psychosis. ? Cannabis/marijuana information: http_s://che.nih.gov/publications/drugfacts/cannabis-marijuana ? ? http_s://www.GetBack/uxljcwjx-nva-smlveauz-marijuana-adhd/ http_s://www.murray.org/Qjqvc-Bworzp-Ywymygd/Qxbdnn-Vjsmnh-Dvxtivhkjd http_s://psychBetUknowral.com/depression/lrr-hrqchkmvr-hujnmafq-of-depression#treatm ents http__s://www.nim.nih.gov/health/topics/omnukf-huuexj-hlhadicsucq ? http__s://www.murray.org/Mspzx-Hayrph-Jenztjn/Treatments/Wpbwqu-Xjnuat-Tdfdojbwnut ? educated on all medications, benefits, side effects and risk, and educated on depression, anxiety, and ADHD, mood d/o and educated on compliance of medications, metabolic and movement d/o education appointment's, continue therapy discussion with patient about course of treatment and patient instructions. education on serotonin syndrome ? Discussed and educated pt regarding benzodiazepines are generally not intended for prolonged use and that use can cause tolerance, dependence, depression, and associated memory issues including dementias (this list is not exhaustive). Benzodiazepine use is generally not recommended concurrently with pain medications and/or other controlled substances? 2. Generalized anxiety disorder?- no control substance prescribed by [facility] r/t cannabis use daily Increase Vistaril 50 mg three times a day for anxiety patient been taking Benzo mg daily PCP prescribed and not prescribing presently not taking on weekends only work days,- patient reported has new PCP- Dr. Sesay? Discussed and educated pt regarding benzodiazepines are generally not intended for prolonged use and that use can cause tolerance, dependence, depression, and associated memory issues including dementias (this list is not exhaustive). Benzodiazepine use is generally not recommended concurrently with pain medications and/or other controlled substances due to increased risks of profound sedation, respiratory depression, coma, and even . They are not to be used with any alcohol, as this combination can also be lethal. Patient was provided caution pcp prescribed Lorazepam 3. Intermittent explosive disorder?- discuss and educated on options rx- will addABILIFY 5 MG AT BEDTIME? Second generation antipsychotics (SGAs) have metabolic syndrome issues with weight gain, increase in prolactin, increased waist circumference, increased lipids, and increased glucose. Thus routine monitoring of weight, metabolic labs, etc. is indicated. A general rank ordering of antipsychotics that have the greatest to the least risk of metabolic effects is olanzapine, quetiapine, risperidone, ziprasidone, and aripiprazole. However, weight gain can occur with all of these drugs and considerable variability exists among patients receiving the same drug regarding the risk of metabolic effects. Anti-psychotic agents not only increase the risk of metabolic disorder, they also increase the risk of CVA, akathisia, and movement disorders including EPS or tardive dyskinesia (more common with first generation antipsychotics) and more. ? Elderly- discussed risks, cognition, sedation, falls, metabolic, movement and atypical antipsychotics carry a black-box warning for increased risk of and cerebrovascular events in dementia. ? Medication Management and Follow-Up - Plan: ?- Schedule follow-up appointments every 1-3 months to monitor the patient's response to the medication regimen. ?- Reinforce the importance of avoiding recreational drug use due to potential neurotoxicity and interactions with prescribed medications. ? 4. Long-term drug therapy? -no control substance prescribed by [facility] r/t cannabis use daily Plan: * Treatment: 2.?Intermittent explosive di sorder? Start ARIPiprazole Tablet, 5 MG, 1 tablet at bedtime, Orally, Once a day, 90 days, 90 Tablet, Refills 0.?? 3.?Others? Notes: referral to the [facility] office of the Alzheimer's Association ( ;http://www.alz.org), the [facility] Education [facility] Referral [facility] ([facility]) ( ;http://www.rosalie.nih.gov/Alzthu strickland/), ?? * Procedure Codes:?G2211 VISIT COMPLEXITY INHERENT TO ONGOING CARE RELATED TO A PATIENT'S SINGLE, SERIOUS CONDITION OR A COMPLEX CONDITION * Preventive Medicine:? ??Counseling:?BP Management:?FIRST HYPERTENSIVE BP READING FOLLOW-UP PLAN:?educated patient on healthy b/p 120/80monitor b/p at homerefer to PCP/Urgent care/EREducated on heart healthy diet, excise and low sat, and take all prescribed rx,?REFERRAL TO ALTERNATIVE / PRIMARY CARE PROVIDER:?refer to PCP.? * Follow Up:?6 Weeks (Reason: FU Abilify) * Billing Information: * Visit Code:? 60643 OFFICE OUTPATIENT VISIT 25 MINUTES DETAILED HISTORY AND EXAM/MODERATE MEDICAL DECISION MAKING. * Procedure Codes:? G2211 VISIT COMPLEXITY INHERENT TO ONGOING CARE RELATED TO A PATIENT'S SINGLE, SERIOUS CONDITION OR A COMPLEX CONDITION. * Sign off status: Completed true * Provider:?RILEY ROSAS Date:? Generated for Ayaan roa/Andi/Giancarlo on:?07/21/2024 09:17 PM WAX BLEACHER History and Physical Notes * HPI (History of Present Illness) Category Sub-Category Detail Notes Category Not es History of Presenting Problem Generalized Anxiety DisorderReported by patient.Onset/Timin years Severity: moderate Context: depression Modifying Factors: psychotropic medication Notes: This is a 63 year old white male follow up I been having anxiety and anger again triggers goign to [facility] and doctors and appts been cxl when my doctor left and they may not be able to give me rx, they can not get me in until 06/21, I got another provider 03/13/24, they would not fiil one rx until I am seen, I am easy agitated even at work I take Vistaril tid and other PCP gives me Benzo, depression none, I still plan to retired in 8 months 10/29/24, no physical aggression, I have notice friends passing away at my age, I sleep good average 7-8 pm- 4 am and bathroom in night and I feel no sad or down, no hopeless or helpless and concentrate and focus good, motivation and interest not there much since close to long term, I be happy at home and will be working, no psychosis no jaguar no SI/HI, DM on Mounjaro and weight loss and A1C unsure and not checked BS I am not eating much, nothing taste good and always full. denies SI/HI no plans or intent no thoughts harm self or others no past attempts, no FH etoh- very little couple times a month shot Tequila Smoking- denies labs- PCP labs drugs cannabis reported works for me Major Depressive DisorderReported by patient.Onset/Timin years Severity: mild; Context: history of depression Modifying Factors: psychotropic medication Jaguar Reported by patient.Notes:none Psychosis Reported by patient.Notes:NONE Psychotherapy InterventionReported by patient. Notes:none rx HX Buspar (mess with head), Xanax, Celexa Seroquel (reported not tolerated), Depakote (sweat), Cymbalta (sweat), Lamotrigine, Vistaril, Examination Category Sub-Category Detail Notes Category Not es Psychiatry Appearance: well-groomed, we ll-nourished, appears stated age Attitude: cooperative Psychomotor activity: within normal rang e Abnormal body movements: none Attention: good Degree of awareness of surroundings: wit hin normal limits Orientation: awake, alert and jia ented x 3 Affect / mood: appropriate, full ra nge Speech / language: appropriate pitch/mo dulation, clear and coherent, normal rate, volume, and articulation (RVR), proper grammar used Insight: good Judgement: good Thought process: intact Thought content: appropriate Perceptual disorders: no perceptual diso rder noted Aggression: low Anger control: good Suicidal ideation: none Homicidal ideation: none Intellectual functioning: average Impulse control: good Sexual impulse control: good Memory status: no impairment noted Delusions: no Hallucinations: no Comprehension - Intellectual function: a verage Dementia Safety concern scree mayra for dangerousness to self and environment risks provided:: Yes ?What action was taken to mitigate the r isk?: Education provided ?Topics discussed for enviro nmental risks:: Home safety risks that could arise from cooking or smoking, Access to firearms or other weapons, Access to potentially dangerous chemicals and other materials ?Topics discussed for danger ousness to self:: Medication misuse, Financial mismanagement ?Safety concern mitigation recommendatio n provided:: Not required ?Screening Result:: Negative Caregiver education and support provided : No Functional Assessment Santo Index of ADL Score:: 6 1 point for independence, 0 for help 1 point for independence, 0 for help Physical Functioning Personal hygiene: i ncluding combing hair, brushing teeth, shaving, applying makeup, washing/drying face and hands (exclude baths and showers): Independent Bathing: how client takes fu ll-body bath/shower or sponge bath (exclude washing of back and hair). Includes how each part of body is bathed: arms, upper and lower legs, chest, abdomen, perineal area. (code for most dependent episode in last 7 days): Independent Dressing upper body: how cli ent dresses and undresses (street clothes, underwear) above the waist, includes prostheses, orthotics, fasteners, pullovers, etc.: Independent Dressing lower body: how cli ent dresses and undresses (street clothes, underwear), from the waist down, includes prostheses, orthotics, belts, pants, skirts, shoes, and fasteners: Independent (1) Eating - Including taking in food by any method, including tube feedings: Independent Toilet use: including using the toilet room or commode, bedpan, urinal, transferring on/off toilet, cleaning self after toilet use or incontinent episode, changing pad, managing any special devices required (ostomy or catheter), and adjusting clothes.: Independent Transfer: including moving t o and between surfaces--to/from bed, chair, wheelchair, standing position (excludes to/from bath/toilet): Independent Transportation: No difficulty Continence:: Independent (1)
--- OUTSIDE RECORDS SUMMARY | 2024-07-21 21:18 | XMS_ITS | Clinical Summary ---
Author Organization [facility] Address [address] [address] Phone Care Team Providers Care Senior Ssis Developer Name Role Phone Ryan Sabrina OSULLIVAN Unavailable No, Physician Primary Care Provider [phone] Allergies Active Allergy Reactions Criticality Noted Date Comments Buspirone Agitation Low 08/18/2022 Duloxetine Agitation Low 08/18/2022 Opvzoly-Etz-Lze Reductase Inhibitors Muscle pain Medium 08/18/2022 Medications hydrOXYzine (ATARAX) 25 mg tablet TAKE 1 TABLET BY MOUTH THREE TIMES A DAY NEEDED FOR 30 DAYS 3 Active LORazepam (ATIVAN) 0.5 mg tabletIndicati ons:Generalize d anxiety disorder Take 1 tablet (0.5 mg total) by mouth nightly as needed for anxiety 30 tablet 5 4 Active Jardiance 25 mg tabletIndicati ons:Type 2 diabetes mellitus with hyperglycemia, without long-term current use of insulin (HCC) Take 1 tablet (25 mg total) by mouth daily 90 tablet 2 4 025 Active metFORMIN (GLUCOPHAGE) 1,000 mg tabletIndicati ons:Type 2 diabetes mellitus with hyperglycemia, without long-term current use of insulin (HCC) Take 1 tablet (1,000 mg total) by mouth daily with breakfast 90 tablet 2 4 025 Active valsartan (DIOVAN) 320 mg tabletIndicati ons:Hypertensi on associated with diabetes (HCC) Take 1 tablet (320 mg total) by mouth daily 90 tablet 2 4 025 Active ezetimibe (ZETIA) 10 mg tabletIndicati ons:Hyperlipid emia associated with type 2 diabetes mellitus (HCC) TAKE 1 TABLET BY MOUTH EVERY DAY 90 tablet 4 Active Mounjaro 5 mg/0.5 mL pen injectorIndica tions:Type 2 diabetes mellitus with hyperglycemia, without long-term current use of insulin (HCC) INJECT 5 MG SUBCUTANEOUSLY EVERY 7 DAYS 2 mL 1 4 Active amLODIPine (NORVASC) 10 mg tabletIndicati ons:Hypertensi on associated with diabetes (HCC) TAKE 1 TABLET BY MOUTH EVERY DAY AT NIGHT 90 tablet 2 4 Active Active Problems Problem Noted Date Diagnosed Date Umbilical hernia without obstruction and without gangrene 09/07/2023 Tinnitus of both ears 08/20/2023 Primary osteoarthritis of right knee 01/23/2023 Class 1 obesity due to exces s calories with serious comorbidity and body mass index (BMI) of 34.0 to 34.9 in adult 08/18/2022 Type 2 diabetes mellitus wit h hyperglycemia, without long-term current use of insulin 08/18/2022 Assessment & Plan (09/07/2023 8:15 PM CDT): Strongly encouraged patient to monitor his home blood sugars. Patient stated that he would. D/C Shyla if you're able to find the new dose of Mounjaro 5 mg weekly. Low carbs diet recommended. Cont metformin for now, valsartan. Patient intolerant to statins. Assessment & Plan (08/21/2023 8:13 AM RETAIL SALES MERCHANDISER): A1c at goal of less than 8.0, continue current prescription medications, Jardiance, metformin, valsartan. Assessment & Plan (02/17/2023 2:29 PM CDT): A1c at goal of less than 8.0, continue current prescription medications, Jardiance, metformin, valsartan. Assessment & Plan (08/18/2022 8:54 PM RETAIL SALES MERCHANDISER): Labs ordered, cont current medications. Will follow. Generalized anxiety disorder 08/18/2022 Assessment & Plan (08/21/2023 8:14 AM RETAIL SALES MERCHANDISER): Stable. Cont. Current prescription medications, lorazepam. Followed by psychiatrist. Assessment & Plan (02/17/2023 2:30 PM CDT): Discontinue hydroxyzine and Seroquel per patient request. Will give trial of lorazepam. Patient understand this is just 1 tablet a day p.r.n.. If patient requires more, consider new referral to Psychiatry for further evaluation and management. Assessment & Plan (08/18/2022 8:53 PM RETAIL SALES MERCHANDISER): Initially offered patient a substitution for his Xanax, I offered klonopin. He asked if it was a capsule. If so, he states, that he was on it before and it didn't work. He also shows me 2 old prescriptions for nonbenzodiazepine medications, one was buspirone and the other, I believe was bupropion. However, he was talking with his hands, and was waving his hands up in the air stating, SO WHY AM I HERE IF YOU ARE NOT GOING TO WRITE XANAX? I explained to him that I do not write this particular medication, but that I was willing to substitute it. He asked if he could just go back to the provider who use to write it for him. I agreed to refer him. Statin myopathy 08/18/2022 Assessment & Plan (08/21/2023 8:14 AM RETAIL SALES MERCHANDISER): Statin myopathy, low chol diet recommended. Assessment & Plan (02/17/2023 2:29 PM CDT): Unable to tolerate statins, patient on Zetia. Assessment & Plan (08/18/2022 8:49 PM RETAIL SALES MERCHANDISER): Unable to tolerate statins, low chol diet recommended to help lower cholesterol. Hyperlipidemia associated with type 2 diabetes lam prashantosbaldo 11/12/2013 Overview (08/18/2022): Assessment & Plan (09/07/2023 8:16 PM CDT): LDL near goal of < 100, low chol diet recommended. Continue Zetia, patient intolerant to statins. Assessment & Plan (08/21/2023 8:12 AM RETAIL SALES MERCHANDISER): LDL is near goal of < 100, low chol diet recommended. Statin intolerance, continue Zetia. Assessment & Plan (02/17/2023 2:29 PM CDT): LDL at goal of less than 100, continue current prescription medications, Zetia. Patient intolerant to statins. Assessment & Plan (08/18/2022 8:55 PM RETAIL SALES MERCHANDISER): Low chol diet recommended. Continue Zetia. Hypertension associated with diabetes 11/12/2013 Overview (08/18/2022): Assessment & Plan (09/07/2023 8:16 PM CDT): Blood pressure at goal less than 140/90, continue current prescription medications, amlodipine, valsartan. Assessment & Plan (08/21/2023 8:13 AM RETAIL SALES MERCHANDISER): Blood pressure at goal less than 140/90, continue current prescription medications, amlodipine, valsartan. Assessment & Plan (08/18/2022 8:55 PM RETAIL SALES MERCHANDISER): Slightly above goal of < 140/90, cont current medications. Cut back on added salt. Resolved Problems Problem Noted Date Diagnosed Date Resolved Date Encounter for screening colonoscopy 05/26/2023 08/20/2023 Acute pain of right knee 10/28/2022 Assessment & Plan (10/28/2022 12:51 PM CDT): Acute pain in right knee, especially when ascending stairs. Knee joints stable, patient is ambulatory without any assistance devices. X-rays ordered, referred to Orthopedics for further evaluation and management. Trial of or steroids. Immunizations Name Administration Dates Next Due Influenza, Quadrivalent, Spl it, Preservative Free, Intramuscular 03/07/2023,04/06/2022,03/15/2021,02/21 Influenza, Split 03/14/2010,04/18/2009 Influenza, Trivalent, IM (MDV) 03/11/2014,2012,02/26/2011 Influenza, Trivalent, Preser vative Free, Intramuscular 04/03/2017,03/21/2016 Tdap 08/18/2022 Surgical History Surgery Date Site/Laterality Comments HERNIA REPAIR Hernia repair TONSILLECTOMY Tonsillectomy WISDOM TOOTH EXTRACTION COLONOSCOPY 07/30/2011 - 08/27/2011 Medical History Medical History Date Comments Hx Other Medical mouth surgery Hx Other Medical arm fracture Hypertension hypertension Hx Other Medical back pain; Comm ents: final spinal injection for back pain Diabetes mellitus (HCC) Enlarged prostate Anxiety Depression Tension headache Family History Medical History Relation Name Comments Other Father Unknown; Brain cancer Mother Breast cancer Mother Cancer -breast ; Other Mother Alive and well; Crohn's disease Sister Relation Name Status Comments Father Mother Sister Alive Social History Tobacco Use Types Packs/Day Years Used Date Smoking Tobacco: Never Smokeless Tobacco: Never Tobacco Cessation:Counseling Given: Not Answered Alcohol Use Standard Drinks/Week Comments Yes 0 (1 standard drink = 0.6 oz pur e alcohol) AUDIT-C Answer Date Recorded Q1: How often do you have a drink containing alc ohol? 2-4 times a month 11/10/2023 Q2: How many drinks containi ng alcohol do you have on a typical day when you are drinking? 3 or 4 11/10/2023 Q3: How often do you have si x or more drinks on one occasion? Weekly 11/10/2023 PHQ-2 Answer Date Recorded PHQ-2 Total Score (If total score is 3 or more points, staff should administer the PHQ-9) 0 08/20/2023 Personal Safety Answer Date Recorded Have you ever been in or are you currently in a harmful physical or emotional relationship or is someone making you feel afraid or unsafe? Denies 11/11/2023 Sex and Gender Information Value Date Recorded Sex Assigned at Not on file Legal Sex Male 11:17 AM CDT Gender Identity Not on file Sexual Orientation Not on file Obstetrics History Last Filed Vital Signs Vital Sign Reading Time Taken Comments Blood Pressure 169/93 02/22/2024 1:03 PM CDT Pulse 91 02/22/2024 1:03 PM CDT Temperature 36.8 ??C (98.2 ??F) 11/11/2023 9:28 AM CD T Respiratory Rate 18 11/11/2023 9:28 AM CDT Oxygen Saturation 100% 11/11/2023 9:28 AM CDT Inhaled Oxygen Concentration - - Weight 95.7 kg (211 lb) 02/22/2024 1:03 PM CDT Height 172.7 cm (5' 8 ) 02/22/2024 1:03 PM CDT Body Mass Index 32.08 02/22/2024 1:03 PM CDT Plan of Treatment Health Maintenance Due Date Last Done Comments Dilated Eye Exam 1960 Pneumococcal vaccine <65 (1 of 2 - PCV) 10/29/1965 Hepatitis B Screening 10/29/1977 Zoster Vaccine (1 of 2) 10/29/2009 Foot Exam 02/18/2024 02/17/2023 Hemoglobin A1C 02/18/2024 08/20/2023, 01/28, 08/18/2022 Covid-19 Vaccine (3 - 2023-2 5 season) 2024 02/04/2021, 01/14/2021 Influenza Vaccine (#1) 2024 , 04/06/2022, 03/15/2021, Additional history exists Prostate Cancer Screening-PSA 08/18/2024 08/18/2022, 08/26/2012 Albumin Creatinine Ratio, Urine 08/20/2024 08/20/2023, 02/17/2023, 08/18/2022 Depression Screening 08/20/2024 08/20/2023, 02/17/2023, 10/28/2022, Additional history exists Lipid Panel 08/20/2024 08/20/2023, 01/28, 08/18/2022, Additional history exists Regular Well Visit/Exam 18-64 08/20/2024 08/20/2023, 08/18/2022 eGFR 08/20/2024 08/20/2023, 01/28, 08/18/2022 Colon Cancer Screening-Colonoscopy 11/10/20282023, 08/14/2011 DTaP/Tdap/Td Vaccine (2 - Td or Tdap) 08/18/2032 08/18/2022 Hepatitis C Screening Completed 08/18/2022 Procedures Procedure Name Priority Date/Time Associated Diagnosis Comments COLONOSCOPY 11/11/2023 7:15 AM CDT EGFR Routine 08/20/2023 2:57 PM RETAIL SALES MERCHANDISER Annual physical exam Hypertension associated with diabetes (HCC) Hyperlipidemia associated with type 2 diabetes mellitus (HCC) Type 2 diabetes mellitus with hyperglycemia, without long-term current use of insulin (CMS/HCC) (HCC) Encounter for screening for other digestive system disorders HEMOGLOBIN A1C Routine 08/20/2023 2:57 PM RETAIL SALES MERCHANDISER Annual physical exam Type 2 diabetes mellitus with hyperglycemia, without long-term current use of insulin (CMS/HCC) (HCC) LIPID PANEL Routine 08/20/2023 2:57 PM RETAIL SALES MERCHANDISER Annual physical exam Hypertension associated with diabetes (HCC) Hyperlipidemia associated with type 2 diabetes mellitus (HCC) Type 2 diabetes mellitus with hyperglycemia, without long-term current use of insulin (CMS/HCC) (HCC) ALBUMIN CREATININE RATIO, URINE Routine 08/20/2023 2:57 PM RETAIL SALES MERCHANDISER Type 2 diabetes mellitus with hyperglycemia, without long-term current use of insulin (CMS/HCC) (HCC) HEPATITIS C ANTIBODY Routine 08/18/2022 2:46 PM RETAIL SALES MERCHANDISER Annual physical exam Encounter for hepatitis C screening test for low risk patient PSA SCREEN Routine 08/18/2022 2:46 PM RETAIL SALES MERCHANDISER Screening PSA (prostate specific antigen) from Last 3 Months or Most Recently Relevant to Health Maintenance Results * Colonoscopy (11/11/2023 7:15 AM CDT) Anatomical Region Laterality Modality Other Narrative Procedure Note Arabella Khanna MD - 11/11/2023 7:15 AM CDT [facility] Patient Name: Pavel Corbett Procedure Date: 11/11/2023 7:15 AM Date of : 1960 Admit Type: Outpatient Age: 63 Gender: Male Attending MD: Arabella Khanna M.D. Room: [facility] 1 Note Status: Finalized Patient Profile: This is a 63 year old male. No family history ofcolon cancer. No specific GI complaint. Procedure: Colonoscopy Indications: Screening for colorectal malignant neoplasm, Last colonoscopy: July 2011 Referring MD: Eleanor Arciniega D.O. Providers: Arabella Khanna M.D. Impression: - One 4 mm polyp in the proximal ascending colon, removed with a jumbo cold forceps. Resected and retrieved. - Two 3 to 4 mm polyps in the distal transversecolon, removed with a jumbo cold forceps. Resected and retrieved. - Diverticulosis in the sigmoid colon and in the descending colon. - Internal hemorrhoids. Recommendation: - Await pathology results. - Repeat colonoscopy in 5 years for surveillance. - Continue present medications. Medicines: Monitored Anesthesia Care Complications: No immediate complications. Estimated Blood Loss: Estimated blood loss: none. Procedure: Pre-Anesthesia Assessment: - Prior to the procedure, a History and Physicalwas performed, and patient medications and allergieswere reviewed. The patient's tolerance of previous anesthesia was also reviewed. The risks andbenefits of the procedure and the sedation options and risks were discussed with the patient. All questions were answered, and informed consent was obtained. Prior Anticoagulants: The patient has taken noanticoagulant or antiplatelet agents. ASA Grade Assessment: Per anesthesia note and evaluation. After reviewing the risks and benefits, the patient was deemed in satisfactory condition to undergo the procedure. The benefits, risks and alternatives of theprocedure and sedation were discussed and informed consentwas obtained. All questions were answered. Please referto the signed informed consent document in the medical record. The bowel preparation used was Miralax and bisacodyl tablets via split dose instruction. The scope was passed under direct vision. The Pediatric Colonoscope PCF-H190L [id number] was introducedthrough the anus and advanced to the the cecum, identifiedby appendiceal orifice and ileocecal valve. Thequality of the bowel preparation was good. Bowel prep was administered using a split dose. Findings: The perianal and digital rectal examinations were normal. The cecum appeared normal. A 4 mm polyp was found in the proximal ascending colon. The polyp was semi-sessile. The polyp was removed with a jumbo cold forceps.Resection and retrieval were complete. Two sessile polyps were found in the distal transverse colon. Thepolyps were 3 to 4 mm in size. These polyps were removed with a jumbo cold forceps. Resection and retrieval were complete. Many small-mouthed diverticula were found in the sigmoid colon and descending colon. Internal hemorrhoids were found during retroflexion. The hemorrhoids were medium-sized. Electronically signed by Arabella Khanna M.D. Arabella Khanna M.D. 11/11/2023 9:06:22 AM Number of Addenda: 0 Note Initiated On: 11/11/2023 7:15 AM Procedure Code(s): --- Professional --- 36465, Colonoscopy, flexible; with biopsy, single or multiple Diagnosis Code(s): --- Professional --- Z12.11, Encounter for screening for malignant neoplasm of colon K64.8, Other hemorrhoids D12.2, Benign neoplasm of ascending colon D12.3, Benign neoplasm of transverse colon (hepatic flexure orsplenic flexure) K57.30, Diverticulosis of large intestine without perforation orabscess without bleeding CPT copyright 2020 [employer]. All rights reserved. The codes documented in this report are preliminary and upon oil burner installer reviewmay be revised to meet current compliance requirements. Recognized by the [employer] for promoting quality in endoscopy us Arabella Khanna MD ENDOSCOPY PROCEDURES Final Result * eGFR (08/20/2023 2:57 PM RETAIL SALES MERCHANDISER) eGFR 98 mL/min/1. 73 m2 AUNG BRYANT (JM) Comment: Interpretive Data Reference Interval Normal ?>/= 90 mL/min/1.73m2 Mildly decreased* ? 60 - 89 mL/min/1.73m2 Mildly to moderately decreased ?45 - 59 mL/min/1.73m2 Moderately to severely decreased ??30 - 44 mL/min/1.73m2 Severely decreased ?15 - 29 mL/min/1.73m2 Kidney Failure ?< 15 ??mL/min/1.73m2 *Relative to young adult level Estimated glomerular filtration rate is determined by the 2020 CKD-EPI equation recommended by the National Kidney Foundation (A Unifying Approach to GFR Estimation: Recommendations of the NKF-ASK Task Force on Reassessing the Inclusion of Race in Diagnosing Kidney Disease, JASN 2020). The CKD-EPI equation should not be used for patients with unstable renal function and has not been validated in children and those over 70. Current interpretive data was last reviewed 2021. Blood 08/20/2023 2:57 PM RETAIL SALES MERCHANDISER 08/20/2023 3:02 PM RETAIL SALES MERCHANDISER Eleanor Arciniega DO LAB BLOOD ORDERABLES Final Result Performing Organization Address [facility] Co de Phone Number AUNG BRYANT (JM) [address] [facility] [place] [address] * Albumin Creatinine Ratio, Urine (08/20/2023 2:57 PM RETAIL SALES MERCHANDISER) Albumin Ur <12.0 mg/L AUNG [facility] (JM) Comment: Interpretive Data No reference range established. Current interpretive data was last revised 2018. Testing performed by: [facility], [address] [place] [address]., [id number] Creatinine Ur 90.8 mg/dL AUNG BRYANT (JM) Comment: Interpretive Data No reference range established. Current interpretive data was last revised 2018. Testing performed by: [facility], [address] [place] [address]., [id number] Albumin Creatinine Ratio, Ur <13 1 - 29 mg/g AUNG BRYANT (JM) Comment:Testing performed by : [facility], [address] [place] [address]., [id number] Urine 08/20/2023 2:57 PM RETAIL SALES MERCHANDISER 08/20/2023 7:25 PM RETAIL SALES MERCHANDISER Eleanor Arciniega DO LAB URINE ORDERABLES Final Result Performing Organization Address [facility] de Phone Number AUNG BRYANT (JM) [address] [facility] [place] [address] * (ABNORMAL) Hemoglobin A1c (08/20/2023 2:57 PM RETAIL SALES MERCHANDISER) Hgb A1C 7.5(H) 4.0 - 5.6 % [facility] (JM) Estimated Average Glucose 169 mg/dL AUNG BRYANT (JM) Comment: The ADA recommends reporting an estimated Average Glucose (eAG) with all Hemoglobin A1c results using the equation derived from a study of 507 normal and diabetic adults. ??Minority populations were underrepresented and children were not included. ?? (Diabetes Care 31:9318-1819, 2007). ??The eAG is not equivalent to a fasting glucose. Blood 08/20/2023 2:57 PM RETAIL SALES MERCHANDISER 08/20/2023 3:02 PM RETAIL SALES MERCHANDISER us Eleanor Arciniega DO LAB BLOOD ORDERABLES Final Result AUNG BRYANT (JM) 1 [facility] Department [place] [address] * Lipid panel (08/20/2023 2:57 PM RETAIL SALES MERCHANDISER) Cholesterol 181 30 - 199 mg/dL AUNG BRYANT (JM) Comment: Interpretive Data Ages < or = 19 years ??Acceptable: ? <170 mg/dL ??Borderline high: ??170-199 mg/dL ??High: ? >or= 200 mg/dL Ages > or = 20 years ??Desirable: ?<200 mg/dL ??Borderline high: ??200-239 mg/dL ??High: ? >or= 240 mg/dL Literature References: 1. Expert Panel on Integrated Guidelines for Cardiovascular Health and Risk Reduction in Children and Adolescents. Pediatrics 2011;128:S213 2. NCEP Expert Panel. Circulation 2004;110:227 Current Interpretive Data was last revised on 2018. Triglycerides 119 <=149 mg/dL AUNG BRYANT (JM) Comment: Interpretive Data Ages < or = 9 years ??Acceptable: ? <75 mg/dL ??Borderline high: ??75-99 mg/dL ??High: ? >or= 100 mg/dL Ages 10 to 20 years ??Acceptable: ? <90 mg/dL ??Borderline high: ??90-129 mg/dL ??High: ? >or= 130 mg/dL Ages > or = 20 years ??Desirable: ?<150 mg/dL ??Borderline high: ??150-199 mg/dL ??High: ? 200-499 mg/dL ?Very high: ?? >or= 499 mg/dL Literature References: 1. Expert Panel on Integrated Guidelines for Cardiovascular Health and Risk Reduction in Children and Adolescents. Pediatrics 2011;128:S213 2. NCEP Expert Panel. Circulation 2004;110:227 Current Interpretive Data was last revised on 2018. HDL 54 >=40 mg/dL AUNG Soto (JM) Comment: Interpretive Data Ages < or = 19 years ??Acceptable: ? >45 mg/dL ??Borderline low: ?? 40-45 mg/dL ??Low: ? <40 mg/dL Ages > or = 20 years ??Desirable: ?>or= 60 mg/dL ??Low: ? <40 mg/dL Literature References: 1. Expert Panel on Integrated Guidelines for Cardiovascular Health and Risk Reduction in Children and Adolescents. Pediatrics 2011;128:S213 2. NCEP Expert Panel. Circulation 2004;110:227 Current Interpretive Data was last revised on 2018. LDL, calculated 103 <=129 mg/dL AUNG BRYANT (JM) Comment: Interpretive Data Ages < or = 19 years ??Acceptable: ? <110 mg/dL ??Borderline high: ??110-129 mg/dL ??High: ?>or= 130 mg/dL Ages > or = 20 years ??Optimal: ? <100 mg/dL ??Near optimal: ?100-129 mg/dL ??Borderline high: ?? 130-159 mg/dL ??High: ?>160 mg/dL Literature References: 1. Expert Panel on Integrated Guidelines for Cardiovascular Health and Risk Reduction in Children and Adolescents. Pediatrics 2011;128:S213 2. NCEP Expert Panel. Circulation 2004;110:227 Current Interpretive Data was last revised on 2018. Non-HDL Cholesterol 127 mg/dL AUNG BRYANT (JM) Comment: Interpretive Data Ages < or = 19 years ??Acceptable: ?<120 mg/dL ??Borderline high: ??120-144 mg/dL ??High: ?>145 mg/dL Ages > or = 20 years ??When triglycerides are >200 mg/dL, Non-HDL cholesterol is a secondary target of ? therapy with treatment goals that are 30 mg/dL greater than the LDL cholesterol target. ? Literature References: 1. Expert Panel on Integrated Guidelines for Cardiovascular Health and Risk Reduction in Children and Adolescents. Pediatrics 2011;128:S213 2. NCEP Expert Panel. Circulation 2004;110:227 Current Interpretive Data was last revised on 2018. Chol/HDL ratio 3 ENMA Ag ANNETTE ([place]) Blood 08/20/2023 2:57 PM RETAIL SALES MERCHANDISER 08/20/2023 3:02 PM RETAIL SALES MERCHANDISER Eleanor Arciniega DO LAB BLOOD ORDERABLES Final Result Performing Organization Address [facility] de Phone Number AUNG BRYANT ([place]) 1 [facility] [place] [address] * PSA screen (08/18/2022 2:46 PM RETAIL SALES MERCHANDISER) [facility] PSA-Total 1.14 <=5.40 ng/mL AUNG ANNETTE ([place]) Blood 08/18/2022 2:46 PM RETAIL SALES MERCHANDISER 08/18/2022 3:33 PM RETAIL SALES MERCHANDISER Eleanor Arciniega DO LAB BLOOD ORDERABLES Final Result Performing Organization Address [facility] de Phone Number AUNG BRYANT (JM) 1 [facility] [place] [address] * Hepatitis C antibody (08/18/2022 2:46 PM RETAIL SALES MERCHANDISER) [facility] Hep C Ab Nonreactive Nonreactive AUNG BRYANT ([place]) Comment: Interpretive Data Nonreactive: Antibodies to HCV not detected. Does NOT exclude the possibility of recent exposure to HCV. Equivocal: Equivocal for HCV antibodies. Supplemental molecular testing will be automatically performed to determine infection status in accordance with current CDC screening recommendations. ?? Reactive: Positive for HCV antibodies. ??This may represent current or past HCV infection. Supplemental molecular testing will be automatically performed to determine ??current infection status in accordance with current CDC screening recommendations. Interpretive data was last revised on 2019. Testing performed by: [facility], [address] [place] [address]., [id number] Blood 08/18/2022 2:46 PM RETAIL SALES MERCHANDISER 08/18/2022 7:36 PM RETAIL SALES MERCHANDISER us Eleanor Arciniega DO LAB MICROBIOLOGY - GENERAL ORDERABLES Edited Result - Final [facility] ([place]) 1 [facility] [place] [address] from Last 3 Months or Most Recently Relevant to Health Maintenance Insurance * Guarantor: Pavel Corbett Account Type Relation to Patient Date of Phone Billing Address Personal/Family [address] 1960 [id number] [place] [address] [employer] OPEN ACCESS Advance Directives For more information, please contact: [phone] * Full Code (Latest Code Status on File) Date Activated Date Inactivated Comments 11/11/2023 7:37 AM 11/11/2023 1:50 PM Care Teams Senior Ssis Developer Relationship Specialty Start Date End Date No, Physician PCP - General 04/13/24 Sabrina Davis PA [address] [place] [address] [address] [place] [address] Physician Quarry Manager Orthopedic Surgery 02/17/23
--- OUTSIDE RECORDS SUMMARY | 2024-07-21 21:18 | XMS_ITS | Referral Summary ---
Author Organization [facility] Address [address] [address] Phone Care Team Providers Care Binding Nicker Name Role Phone Ryan Sabrina OSULLIVAN Unavailable No, Physician Primary Care Provider [phone] Allergies Active Allergy Reactions Criticality Noted Date Comments Buspirone Agitation Low 08/18/2022 Duloxetine Agitation Low 08/18/2022 Nqjwexf-Fct-Hzk Reductase Inhibitors Muscle pain Medium 08/18/2022 Medications [...] statins. Assessment & Plan (08/21/2023 8:13 AM TILE SETTER APPRENTICE): A1c at goal of less than 8.0, continue current prescription medications, Jardiance, metformin, valsartan. Assessment & Plan (02/17/2023 2:29 PM CDT): A1c at goal of less than 8.0, continue current prescription medications, Jardiance, metformin, valsartan. Assessment & Plan (08/18/2022 8:54 PM TILE SETTER APPRENTICE): Labs ordered, cont current medications. Will follow. Generalized anxiety disorder 08/18/2022 Assessment & Plan (08/21/2023 8:14 AM TILE SETTER APPRENTICE): Stable. Cont. Current prescription medications, lorazepam. Followed by psychiatrist. Assessment & Plan (02/17/2023 2:30 PM CDT): Discontinue hydroxyzine and Seroquel per patient request. Will give trial of lorazepam. Patient understand this is just 1 tablet a day p.r.n.. If patient requires more, consider new referral to Psychiatry for further evaluation and management. Assessment & Plan (08/18/2022 8:53 PM TILE SETTER APPRENTICE): Initially offered patient a substitution for his [...] 08/18/2022 Assessment & Plan (08/21/2023 8:14 AM TILE SETTER APPRENTICE): Statin myopathy, low chol diet recommended. Assessment & Plan (02/17/2023 2:29 PM CDT): Unable to tolerate statins, patient on Zetia. Assessment & Plan (08/18/2022 8:49 PM TILE SETTER APPRENTICE): Unable to tolerate statins, low chol diet recommended to help lower cholesterol. Hyperlipidemia associated with type 2 diabetes lam prashantosbaldo 11/12/2013 Overview (08/18/2022): Assessment & Plan (09/07/2023 8:16 PM CDT): LDL near goal of < 100, low chol diet recommended. Continue Zetia, patient intolerant to statins. Assessment & Plan (08/21/2023 8:12 AM TILE SETTER APPRENTICE): LDL is near goal of < 100, low chol diet recommended. Statin intolerance, continue Zetia. Assessment & Plan (02/17/2023 2:29 PM CDT): LDL at goal of less than 100, continue current prescription medications, Zetia. Patient intolerant to statins. Assessment & Plan (08/18/2022 8:55 PM TILE SETTER APPRENTICE): Low chol diet recommended. Continue Zetia. Hypertension associated with diabetes 11/12/2013 Overview (08/18/2022): Assessment & Plan (09/07/2023 8:16 PM CDT): Blood pressure at goal less than 140/90, continue current prescription medications, amlodipine, valsartan. Assessment & Plan (08/21/2023 8:13 AM TILE SETTER APPRENTICE): Blood pressure at goal less than 140/90, continue current prescription medications, amlodipine, valsartan. Assessment & Plan (08/18/2022 8:55 PM TILE SETTER APPRENTICE): Slightly above goal of < 140/90, cont [...] Preser vative Free, Intramuscular 04/03/2017,03/21/2016 Tdap 08/18/2022 Social History Tobacco Use Types Packs/Day Years [...] on file Sexual Orientation Not on file Last Filed Vital Signs Vital Sign Reading [...] 02/22/2024 1:03 PM CDT Plan of Treatment Not on file Procedures Procedure Name Priority Date/Time Associated Diagnosis Comments COLONOSCOPY 11/11/2023 7:15 AM CDT EGFR Routine 08/20/2023 2:57 PM TILE SETTER APPRENTICE Annual physical exam Hypertension associated with diabetes (HCC) Hyperlipidemia associated with type 2 diabetes mellitus (HCC) Type 2 diabetes mellitus with hyperglycemia, without long-term current use of insulin (CMS/HCC) (HCC) Encounter for screening for other digestive system disorders HEMOGLOBIN A1C Routine 08/20/2023 2:57 PM TILE SETTER APPRENTICE Annual physical exam Type 2 diabetes mellitus with hyperglycemia, without long-term current use of insulin (CMS/HCC) (HCC) LIPID PANEL Routine 08/20/2023 2:57 PM TILE SETTER APPRENTICE Annual physical exam Hypertension associated with diabetes (HCC) Hyperlipidemia associated with type 2 diabetes mellitus (HCC) Type 2 diabetes mellitus with hyperglycemia, without long-term current use of insulin (CMS/HCC) (HCC) ALBUMIN CREATININE RATIO, URINE Routine 08/20/2023 2:57 PM TILE SETTER APPRENTICE Type 2 diabetes mellitus with hyperglycemia, without long-term current use of insulin (CMS/HCC) (HCC) HEPATITIS C ANTIBODY Routine 08/18/2022 2:46 PM TILE SETTER APPRENTICE Annual physical exam Encounter for hepatitis C screening test for low risk patient PSA SCREEN Routine 08/18/2022 2:46 PM TILE SETTER APPRENTICE Screening PSA (prostate specific antigen) from Last 3 Months or Most Recently Relevant to Health Maintenance Results * Colonoscopy (11/11/2023 7:15 AM CDT) Anatomical Region Laterality Modality Other Narrative Procedure Note Arabella Khanna MD - 11/11/2023 7:15 AM CDT [facility] Patient Name: Pavel Corbett Procedure Date: 11/11/2023 7:15 AM Date of : 1960 Admit Type: Outpatient Age: 63 Gender: Male Attending MD: Arabella Khanna M.D. Room: [facility] ENDOSCOPY ROOM 1 Note Status: Finalized Patient [...] under direct vision. The Pediatric Colonoscope [id number]-H190L [id number] was introducedthrough the anus and advanced to [...] 7:15 AM Procedure Code(s): --- Professional --- 58690, Colonoscopy, flexible; with biopsy, single or multiple Diagnosis Code(s): --- Professional --- Z12.11, Encounter for screening for malignant neoplasm of colon K64.8, Other hemorrhoids D12.2, Benign neoplasm of ascending colon D12.3, Benign neoplasm of transverse colon (hepatic flexure orsplenic flexure) K57.30, Diverticulosis of large intestine without perforation orabscess without bleeding CPT copyright 2020 [employer]. All rights reserved. The codes documented in this report are preliminary and upon wire drawing setter reviewmay be revised to meet current compliance requirements. Recognized by the [employer] for promoting quality in endoscopy us Arabella Khanna MD ENDOSCOPY PROCEDURES Final Result * eGFR (08/20/2023 2:57 PM TILE SETTER APPRENTICE) eGFR 98 mL/min/1. 73 m2 [facility] [...] last reviewed 2021. Blood 08/20/2023 2:57 PM TILE SETTER APPRENTICE 08/20/2023 3:02 PM TILE SETTER APPRENTICE us Eleanor Arciniega DO LAB BLOOD ORDERABLES Final Result Performing Organization Address [facility]/ZIP Co de Phone Number AUNG BRYANT (JM) [address] [place] [address] * Albumin Creatinine Ratio, Urine (08/20/2023 2:57 PM TILE SETTER APPRENTICE) Albumin Ur <12.0 mg/L [facility] (JM) Comment: Interpretive Data No reference range established. Current interpretive data was last revised 2018. Testing performed by: [address] [address] Creatinine Ur 90.8 mg/dL [facility] (JM) Comment: Interpretive Data No reference range established. Current interpretive data was last revised 2018. Testing performed by: [address] [address] Albumin Creatinine Ratio, Ur <13 1 - 29 mg/g [facility] (JM) Comment:Testing performed by : [address] [address] Urine 08/20/2023 2:57 PM TILE SETTER APPRENTICE 08/20/2023 7:25 PM TILE SETTER APPRENTICE us Eleanor Arciniega DO LAB URINE ORDERABLES Final Result Performing Organization Address [facility] Co de Phone Number AUNG BRYANT (JM) 1 [facility] [address] [place] [address] * (ABNORMAL) Hemoglobin A1c (08/20/2023 2:57 PM TILE SETTER APPRENTICE) Hgb A1C 7.5(H) 4.0 - 5.6 % [facility] (JM) Estimated Average Glucose 169 mg/dL [facility] (JM) Comment: The ADA recommends reporting an estimated Average Glucose (eAG) with all Hemoglobin A1c results using the equation derived from a study of 507 normal and diabetic adults. ??Minority populations were underrepresented and children were not included. ?? (Diabetes Care 31:9793-6638, 2008). ??The eAG is not equivalent to a fasting glucose. Blood 08/20/2023 2:57 PM TILE SETTER APPRENTICE 08/20/2023 3:02 PM TILE SETTER APPRENTICE us Eleanor Shaferedgar Arciniega DO LAB BLOOD ORDERABLES Final Result AUNG ANNETTE (JM) 1 [facility] Department [place] [address] * Lipid panel (08/20/2023 2:57 PM TILE SETTER APPRENTICE) Cholesterol 181 30 - 199 mg/dL AUNG [...] revised on 2018. Chol/HDL ratio 3 ENMA R ANNETTE (JM) Blood 08/20/2023 2:57 PM TILE SETTER APPRENTICE 08/20/2023 3:02 PM TILE SETTER APPRENTICE Eleanor Arciniega DO LAB BLOOD ORDERABLES Final Result AUNG BRYANT (JM) 1 [facility] [email or web address] [address] * PSA screen (08/18/2022 2:46 PM TILE SETTER APPRENTICE) PSA-Total 1.14 <=5.40 ng/mL AUNG ANNETTE (ONSLOW) Blood 08/18/2022 2:46 PM TILE SETTER APPRENTICE 08/18/2022 3:33 PM TILE SETTER APPRENTICE Eleanor Arciniega DO LAB BLOOD ORDERABLES Final Result [facility] BRYANT (JM) 1 [facility] [email or web address] [address] * Hepatitis C antibody (08/18/2022 2:46 PM TILE SETTER APPRENTICE) Hep C Ab Nonreactive Nonreactive AUNG BRYANT (JM) Comment: Interpretive Data Nonreactive: Antibodies to HCV [...] last revised on 2019. Testing performed by: [facility], [address] [place] [address], [place]., [address] Blood 08/18/2022 2:46 PM TILE SETTER APPRENTICE 08/18/2022 7:36 PM TILE SETTER APPRENTICE us Eleanor Arciniega DO LAB MICROBIOLOGY - GENERAL ORDERABLES Edited Result - Final [facility] (ONSLOW) 1 [facility] Department [place] [address] from Last 3 Months or Most Recently Relevant to Health Maintenance Insurance [address] OPEN ACCESS Advance Directives For more information, please contact: [phone] * Full Code (Latest Code Status on File) Date Activated Date Inactivated Comments 11/11/2023 7:37 AM 11/11/2023 1:50 PM Care Teams Binding Nicker Relationship Specialty Start Date End Date No, Physician PCP - General 04/13/24 Sabrina Davis PA [address] [place] [address] [address] [place] [address] Physician Woodworker Helper Orthopedic Surgery 02/17/23
--- OUTSIDE RECORDS SUMMARY | 2024-07-21 21:18 | XMS_ITS | Patient Health Record ---
Author Organization [facility] Address [address] [place] [address] Care Team Providers Care Safety Lamp Keeper Name Role Phone Edith Snider Unavailable [phone] Migration, Provider Unavailable Unavailable Allergies No Known Allergies Reason For Referral No Information Medications Medication SIG (Take, Route, Frequency, Duration) Notes Start Date End Date Status Mounjaro 5 MG/0.5ML Subcutaneous *Reorder fro m Medispan for eRx and Interaction Alerts* 08/31/2023 Active amLODIPine Besylate 10 MG Oral 08/31/2023 Active LORazepam 0.5 MG Oral 08/31/2023 Ac tive hydrOXYzine HCl 50 MG 1 tablet Oral three times a day for 90 days d/c 25 mg dose Active ARIPiprazole 5 MG 1 tablet at bedtime Orally Once a day for 90 days Active Immunizations Vaccine Route Administration Date Status Comme nts COVID-19 (SARS-COV-2) vaccin e, unspecified Unknown 06/29/2021 Administered Influenza, unspecified formulation Unknown 03/31/2022 A dministered Social History Tobacco Use: Social History Observation Description Date Details (start date - stop date) Never Smoker NA - NA Sex Assigned At : Social History Observation Description Sex Assigned At Male Tobacco Control (Standard) Question Answer Notes Tobacco use: Nonsmoker Problems Problem Type SNOMED Code ICD Code Onset Dates Problem Status W/U Status Risk Notes Problem Mild recurrent major depression (15383990) Major depressive disorder, recurrent, mild (F33.0) 4 Active confirmed Problem Generalized anxiety disorder (22527171) Generalized anxiety disorder (F41.1) 4 Active confirmed Problem Intermittent explosive disorder (96466706) Intermittent explosive disorder (F63.81) 4 Active confirmed Problem Long-term current use of drug therapy (391741469) Other jail (current) drug therapy (Z79.899) 4 Active confirmed Problem 368550453 Marijuana use (F12.90) Active confirmed Vital Signs Heart Rate 97 /min 04/12/2024 Blood pressure diastolic 89 mm Hg 04/12/2024 Height-cm 172.72 cm 04/12/2024 Weight-kg 94.17 kg 04/12/2024 Height 68.00 in 04/12/2024 Blood pressure systolic 159 mm Hg 04/12/2024 Weight 207.6 lbs 04/12/2024 BMI 31.56 kg/m2 04/12/2024 Encounters Encounter [facility] Date [facility] [place] [id number] [address] [address] 08/31/2023 Edith Snider 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) drug therapy Z79.899 ; Intermittent explosive disorder F63.81 ; Generalized anxiety disorder F41.1 and Major depressive disorder, recurrent, mild F33.[address] [address] 03/01/2024 Edith Snider Generalized anxiety disorder F41.1 ; Major depressive disorder, recurrent, mild F33.0 ; Intermittent explosive disorder F63.81 ; Marijuana use F12.90 and Other jail (current) drug therapy Z79.899 [facility] [address] [place] [address] [address] 04/12/2024 Edith Snider Generalized anxiety disorder F41.1 ; Major depressive disorder, recurrent, mild F33.0 ; Intermittent explosive disorder F63.81 ; Marijuana use F12.90 and Other jail (current) drug therapy Z79.899 [facility] [address] [facility] [address] [address] 08/20/2023 Provider Migration [facility] [address] 09/02/2023 Provider Migration [facility] [address] 10/22/2023 Provider Migration [address] [address] 11/14/2023 Provider Migration [facility] [address] [place] [address] 11/15/2023 Provider Migration Assessments Encounter Date Diagnosis (ICD Code) Assessment Notes Treatment Notes Treatment Clinical Notes Section Notes 08/31/2023 Major depressive disorder, recurrent, mild (ICD-10 - F33.0) 08/31/2023 Generalized anxiety disorder (ICD-10 - F41.1) 08/31/2023 Intermittent explosive disorder (ICD-10 - F63.81) 08/31/2023 Other jail (current) drug therapy (ICD-10 - Z79.899) 04/12/2024 Generalized anxiety disorder (ICD-10 - F41.1) 1. Mild recurrent major depression -obtain labs PCP Abilify 5 mg bedtime educated on all medications, benefits, side effects [...] psychosis. Cannabis/marijuana information: http_s://che.nih. gov/publications/d rugfacts/cannabis- marijuana http_s://www.CureDM/cannabi t-tbn-oxpcufuk-mar ijuana-adhd/ http_s://www.murray. org/Whzya-Keqxif-E llness/Mental-Heal th-Conditions http_s://psychcent TravelShark.com/depression /hzj-tupanadmp-bag myjrt-po-uodawmkal n#treatments http__s://www.nimh .nih.gov/health/to pics/mental-health -medications http__s://www.murray .org/About-Mental- Illness/Treatments /Kivdnx-Onxjjf-Nbv ications educated on all medications, benefits, side [...] disorder - no control substance prescribed by [facility] r/t cannabis use daily Vistaril 50 mg three times a day [...] - discuss and educated on options rx- ABILIFY 5 MG AT BEDTIME Second generation [...] drug therapy -no control substance prescribed by [facility] r/t cannabis use daily 03/01/2024 Major depressive [...] psychosis. Cannabis/marijuana information: http_s://che.nih. gov/publications/d rugfacts/cannabis- marijuana http_s://www.CureDM/cannabi g-znt-gqziquaj-mar ijuana-adhd/ http_s://www.murray. org/Hsgen-Lhjswq-R llness/Mental-Heal th-Conditions http_s://psychMain Street Stark.com/depression /ohj-klfrmynce-fca oycjm-rl-qyggsgtjj n#treatments http__s://www.nimh .nih.gov/health/to pics/mental-health -medications http__s://www.murray .org/About-Mental- Illness/Treatments /Votaye-Bueltu-Jwc ications educated on all medications, benefits, side [...] disorder - no control substance prescribed by [facility] r/t cannabis use daily Increase Vistaril 50 [...] by [facility] r/t cannabis use daily 03/01/2024 Generalized anxiety disorder (ICD-10 - F41.1) [...] psychosis. Cannabis/marijuana information: http_s://che.nih. gov/publications/d rugfacts/cannabis- marijuana http_s://www.CureDM/cannabi o-znw-tmqssrxj-mar ijuana-adhd/ http_s://www.murray. org/Cmhnn-Rgcnrl-T llness/Mental-Heal th-Conditions http_s://psychcent TravelShark.com/depression /xqq-xqqywcsbi-rpa hvdlh-vi-kqeiycnhe n#treatments http__s://www.nimh .nih.gov/health/to pics/mental-health -medications http__s://www.murray .org/About-Mental- Illness/Treatments /Absqoo-Ighbpo-Zhq ications educated on all medications, benefits, side [...] by [facility] r/t cannabis use daily 03/01/2024 Intermittent explosive [...] psychosis. Cannabis/marijuana information: http_s://che.nih. gov/publications/d rugfacts/cannabis- marijuana http_s://www.SpineThera.BlogCN/cannabi c-yqm-ptuqnupt-mar ijuana-adhd/ http_s://www.murray. org/Hizcg-Lhucvl-R llness/Mental-Heal th-Conditions http_s://psychcent TravelShark.com/depression /fnw-xkznlxlpw-rvv uutel-ot-qzbcwceww n#treatments http__s://www.nim .nih.gov/health/to pics/mental-health -medications http__s://www.murray .org/About-Mental- Illness/Treatments /Rsgday-Tvjopm-Uzx ications educated on all medications, benefits, side [...] prescribed by [facility] r/t cannabis use daily 04/12/2024 Major depressive disorder, recurrent, mild (ICD-10 - F33.0) 1. Mild recurrent major depression -obtain labs PCP Abilify 5 mg bedtime educated on all medications, benefits, side effects [...] psychosis. Cannabis/marijuana information: http_s://che.nih. gov/publications/d rugfacts/cannabis- marijuana http_s://www.CureDM/cannabi p-wye-noyurmkt-mar ijuana-adhd/ http_s://www.murray. org/Ddhrv-Qpzqfm-I llness/Mental-Heal th-Conditions http_s://psychcent TravelShark.com/depression /hyp-ysuzadtfk-hwg vifri-jl-iwpigbygz n#treatments http__s://www.nimh .nih.gov/health/to pics/mental-health -medications http__s://www.murray .org/About-Mental- Illness/Treatments /Notlws-Evfnpn-Sqt ications educated on all medications, benefits, side [...] disorder - no control substance prescribed by [facility] r/t cannabis use daily Vistaril 50 mg three times a day [...] - discuss and educated on options rx- ABILIFY 5 MG AT BEDTIME Second generation [...] drug therapy -no control substance prescribed by [facility] r/t cannabis use daily 04/12/2024 Intermittent explosive disorder (ICD-10 - F63.81) 1. Mild recurrent major depression -obtain labs PCP Abilify 5 mg bedtime educated on all medications, benefits, side effects [...] psychosis. Cannabis/marijuana information: http_s://che.nih. gov/publications/d rugfacts/cannabis- marijuana http_s://www.CureDM/cannabi d-oia-wnikahmi-mar ijuana-adhd/ http_s://www.murray. org/Rahsh-Tchcxh-E llness/Mental-Heal th-Conditions http_s://psychMain Street Stark.com/depression /eex-eogfubkjx-omw xqjdc-vc-tpcpteauw n#treatments http__s://www.nimh .nih.gov/health/to pics/mental-health -medications http__s://www.murray .org/About-Mental- Illness/Treatments /Mejhcf-Gminfw-Otk ications educated on all medications, benefits, side [...] prescribed by [facility] r/t cannabis use daily Vistaril 50 mg three times a day [...] - discuss and educated on options rx- ABILIFY 5 MG AT BEDTIME Second generation [...] drug therapy -no control substance prescribed by [facility] r/t cannabis use daily 03/01/2024 Marijuana use [...] psychosis. Cannabis/marijuana information: http_s://che.nih. gov/publications/d rugfacts/cannabis- marijuana http_s://www.CureDM/cannabi k-rjf-gkwzqami-mar ijuana-adhd/ http_s://www.murray. org/Bwnwl-Zzafdk-A llness/Mental-Heal th-Conditions http_s://psychMain Street Stark.com/depression /dus-cvlzyallk-riz epjii-vd-dzasgrngd n#treatments http__s://www.nimh .nih.gov/health/to pics/mental-health -medications http__s://www.murray .org/About-Mental- Illness/Treatments /Hsrewb-Eyhips-Hss ications educated on all medications, benefits, side [...] prescribed by [facility] r/t cannabis use daily 04/12/2024 Marijuana use (ICD-10 - F12.90) 1. Mild recurrent major depression -obtain labs PCP Abilify 5 mg bedtime educated on all medications, benefits, side effects [...] psychosis. Cannabis/marijuana information: http_s://che.nih. gov/publications/d rugfacts/cannabis- marijuana http_s://www.SpineThera.BlogCN/cannabi o-vsm-kdckqpsl-mar ijuana-adhd/ http_s://www.murray. org/Fqgcd-Omchgl-P llness/Mental-Heal th-Conditions http_s://psychcent TravelShark.com/depression /dnt-naabyzzaw-ucu doxxc-fz-ugcwtqktk n#treatments http__s://www.nimh .nih.gov/health/to pics/mental-health -medications http__s://www.murray .org/About-Mental- Illness/Treatments /Czcdsy-Ytjmsj-Qkn ications educated on all medications, benefits, side [...] prescribed by [facility] r/t cannabis use daily Vistaril 50 mg three times a day [...] - discuss and educated on options rx- ABILIFY 5 MG AT BEDTIME Second generation [...] [facility] r/t cannabis use daily 03/01/2024 Other jail (current) drug therapy (ICD-10 - Z79.899) 1. [...] psychosis. Cannabis/marijuana information: http_s://che.nih. gov/publications/d rugfacts/cannabis- marijuana http_s://www.CureDM/cannabi o-vmr-uizyinlc-mar ijuana-adhd/ http_s://www.murray. org/Ogqsm-Edlvum-Q llness/Mental-Heal th-Conditions http_s://Barefoot Networks.BlogCN/depression /mab-qymtuxxvu-hsh wdlij-ju-aucwydsxd n#treatments http__s://www.nimh .nih.gov/health/to pics/mental-health -medications http__s://www.murray .org/About-Mental- Illness/Treatments /Eleaiu-Dzjbku-Xdp ications educated on all medications, benefits, side [...] drug therapy -no control substance prescribed by [facility] r/t cannabis use daily 04/12/2024 Other jail (current) drug therapy (ICD-10 - Z79.899) 1. Mild recurrent major depression -obtain labs PCP Abilify 5 mg bedtime educated on all medications, benefits, side effects [...] psychosis. Cannabis/marijuana information: http_s://che.nih. gov/publications/d rugfacts/cannabis- marijuana http_s://www.CureDM/cannabi b-xkp-xtierwgu-mar ijuana-adhd/ http_s://www.murray. org/Lvbqg-Xcewnd-P llness/Mental-Heal th-Conditions http_s://Fancorps/depression /wcz-fytaxlqiu-gmh ckkqt-xj-eqmtgqlnp n#treatments http__s://www.nimh .nih.gov/health/to pics/mental-health -medications http__s://www.murray .org/About-Mental- Illness/Treatments /Dtsaoy-Uvrnnj-Wbp ications educated on all medications, benefits, side [...] prescribed by [facility] r/t cannabis use daily Vistaril 50 mg three times a day [...] - discuss and educated on options rx- ABILIFY 5 MG AT BEDTIME Second generation [...] or national office of the Alzheimer's Association (3-797-041-293 0; http://www.alz .org), the Alzheimer's Disease Education and Referral Center (ADEAR) (5-200-115-422 0; http://www.rosalie .nih.gov/Alzhe imers/), 1. Mild recurrent [...] psychosis. Cannabis/marijuana information: http_s://che.nih. gov/publications/d rugfacts/cannabis- marijuana http_s://www.CureDM/cannabi x-ftp-okcvorqb-mar ijuana-adhd/ http_s://www.murray. org/Jieue-Sjmida-S llness/Mental-Heal th-Conditions http_s://psychcent TravelShark.com/depression /suw-aanweuvns-xvm sbeub-tz-fitizkamj n#treatments http__s://www.nimh .nih.gov/health/to pics/mental-health -medications http__s://www.murray .org/About-Mental- Illness/Treatments /Xfgnwn-Vepbsl-Wgu ications educated on all medications, benefits, side [...] r/t cannabis use daily Plan Of Treatment Next Appt Details Provider Name:Edith Snider , 10/11/2024 02:30:00 PM, [address] [facility] [address], [facility] [address], [place], [address], Insurance Providers Payer Name Payer Address Payer Phone Subscriber Number Group Number Insured Name Patient Relationship to Insured Coverage Start Date Coverage End Date [employer] - [employer] [address] [place] [phone] [id number] CHARLES WESLEY Self - patient is the insured Medical (General) History Medical History History ICD Code Problems: Generalized anxiety disorder Intermittent explosive disorder Long-term drug therapy Mild recurrent major depression Recurrent major depressive episodes, mod erate , Surgical History Surgery Date(Month/Year) Any surgical history
--- OUTSIDE RECORDS SUMMARY | 2024-07-21 21:18 | XMS_ITS ---
Author Organization [facility] Address [address] [place] [address] Care Team Providers Care Job Trainer Name Role Phone Edith Snider Unavailable [phone] Migration, Provider Unavailable Unavailable REASON FOR VISIT EMR-Fareed Medications Medication SIG (Take, Route, Frequency, Duration) Notes Start Date End Date Status amLODIPine Besylate 10 MG Oral 08/31/2023 Active metFORMIN HCl 1000 MG Oral 08/31/2023 Active Jardiance 25 MG Oral 08/31/2023 Act vernon Valsartan 320 MG Oral 08/31/2023 Ac tive Divalproex Sodium 250 MG Oral 08/31/2023 Active LORazepam 0.5 MG Oral 08/31/2023 Ac tive ALPRAZolam 0.5 MG Oral 08/31/2023 A ctive DULoxetine HCl 60 MG Oral 08/31/2023 Active ALPRAZolam 1 MG Oral 08/31/2023 Act vernon hydrOXYzine HCl 25 MG Oral 08/31/2023 Active Ezetimibe 10 MG Oral 08/31/2023 Act vernon DULoxetine HCl 30 MG Oral 08/31/2023 Active Mounjaro 5 MG/0.5ML Subcutaneous *Reorder fro m Medispan for eRx and Interaction Alerts* 08/31/2023 Active Glimepiride 2 MG Oral 08/31/2023 Ac tive Mounjaro 2.5 MG/0.5ML Subcutaneous *Reorder from Medispan for eRx and Interaction Alerts* 08/31/2023 Active Social History Sex Assigned At : Social History Observation Description Sex Assigned At Male Encounters Encounter Location Date Provider Diagnosis [employer] [address] [place] [address] 11/15/2023 Provider Migration Plan Of Treatment Next Appt Details Provider Name:Edith Snider , 10/11/2024 02:30:00 PM, [address], [place], [address], Progress Notes * CHARLES WESLEY RDOB: [birth year] (63 yo M)Acc No.[id number]:11/15/2023 Patient:?CHARLES WESLEY :1960???Age:63 Y???Sex:Male Address:[address] [place] [address], [address] Subjective: * Chief Complaints: * ???EMR-Fareed * Medical History:? * Surgical History:?Any surgic al history * Hospitalization/Major Diagno stic Procedure:? * Family History:?Unspecified Relation: Anxiety disorder .?Mother: Malignant neoplasm of brain .? * Social History:?Migrated Social History:?Migrated Social History: Alcohol Intake: None 03/23/2023,Tobacco Years: Never smoker 01/24/2019,Smoking Status: 0 03/23/2023. * Medications:?TakingGlimepiri de 2 MG Tablet Oral ALPRAZolam 0.5 MG Tablet Oral metFORMIN HCl 1000 MG Tablet Oral amLODIPine Besylate 10 MG Tablet Oral Divalproex Sodium 250 MG Tablet Delayed Release Oral ALPRAZolam 1 MG Tablet Oral Valsartan 320 MG Tablet Oral Ezetimibe 10 MG Tablet Oral Mounjaro 5 MG/0.5ML Solution Pen- injector Subcutaneous , Notes to Pharmacist: *Reorder from [employer] for eRx and Interaction Alerts*LORazepam 0.5 MG Tablet Oral Mounjaro 2.5 MG/0.5ML Solution Pen-injector Subcutaneous , Notes to Pharmacist: *Re[facility] from [facility] for eRx and Interaction Alerts*DULoxetine HCl 60 MG Capsule Delayed Release Particles Oral hydrOXYzine HCl 25 MG Tablet Oral DULoxetine HCl 30 MG Capsule Delayed Release Particles Oral Jardiance 25 MG Tablet Oral Taking Glimepiride 2 MG Tablet Oral Taking ALPRAZolam 0.5 MG Tablet Oral Taking metFORMIN HCl 1000 MG Tablet Oral Taking amLODIPine Besylate 10 MG Tablet Oral Taking Divalproex Sodium 250 MG Tablet Delayed Release Oral Taking ALPRAZolam 1 MG Tablet Oral Taking Valsartan 320 MG Tablet Oral Taking Ezetimibe 10 MG Tablet Oral Taking Mounjaro 5 MG/0.5ML Solution Pen-injector Subcutaneous , Notes to Pharmacist: *Reorder from [facility] for eRx and Interaction Alerts*Taking LORazepam 0.5 MG Tablet Oral Taking Mounjaro 2.5 MG/0.5ML Solution Pen-injector Subcutaneous , Notes to Pharmacist: *Reorder from [facility] for eRx and Interaction Alerts*Taking DULoxetine HCl 60 MG Capsule Delayed Release Particles Oral Taking hydrOXYzine HCl 25 MG Tablet Oral Taking DULoxetine HCl 30 MG Capsule Delayed Release Particles Oral Taking Jardiance 25 MG Tablet Oral Objective: * Vitals:? * Physical Examination:? Assessment: Plan: * Treatment: * Procedure Codes:? * true * Date:? 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
--- OUTSIDE RECORDS SUMMARY | 2024-07-21 21:18 | XMS_ITS ---
Author Organization [facility] [employer] Address [address] [facility] [address] [place] [address] Care Team Providers Care Unit Director Name Role Phone Edith Snider Unavailable [phone] Allergies No Known Allergies REASON FOR VISIT f/u visit Medications Medication SIG (Take, Route, Frequency, Duration) Notes Start Date End Date Status Mounjaro 5 MG/0.5ML Subcutaneous *Reorder fro m [facility] for eRx and Interaction Alerts* 08/31/2023 Active amLODIPine Besylate 10 MG Oral 08/31/2023 Active LORazepam 0.5 MG Oral 08/31/2023 Ac tive hydrOXYzine HCl 50 MG 1 tablet Oral three times a day for 90 days d/c 25 mg dose Active ARIPiprazole 5 MG 1 tablet at bedtime Orally Once a day for 90 days Active Social History Sex Assigned At : Social History Observation Description Sex Assigned At Male Vital Signs Blood pressure systolic 159 mm Hg 04/12/20 24 Blood pressure diastolic 89 mm Hg 024 Heart Rate 97 /min 04/12/2024 Height 68.00 in 04/12/2024 Weight 207.6 lbs 04/12/2024 BMI 31.56 kg/m2 04/12/2024 Height-cm 172.72 cm 04/12/2024 Weight-kg 94.17 kg 04/12/2024 Encounters Encounter Location Date Provider Diagnosis [facility] [address] [place] [address] 04/12/2024 Edith Snider Generalized anxiety disorder F41.1 ; Major depressive disorder, recurrent, mild F33.0 ; Intermittent explosive disorder F63.81 ; Marijuana use F12.90 and Other detention (current) drug therapy Z79.899 Assessments Encounter Date Diagnosis (ICD Code) Assessment Notes Treatment Notes Treatment Clinical Notes Section Notes 04/12/2024 Generalized anxiety disorder (ICD-10 - F41.1) [...] psychosis. Cannabis/marijuana information: http_s://che.nih. gov/publications/d rugfacts/cannabis- marijuana http_s://www.[employer]/cannabi j-mba-oruzzdmy-mar ijuana-adhd/ http_s://www.murray. org/Ioflv-Aigvky-K llness/Mental-Heal th-Conditions http_s://psychIO Turbine.com/depression /xri-tgawslxkx-qzm owdrr-ko-wkebdsfmd n#treatments http__s://www.nimh .nih.gov/health/to pics/mental-health -medications http__s://www.murray .org/About-Mental- Illness/Treatments /Rvsyuh-Xlqlvd-Tjh ications educated on all medications, benefits, side [...] psychosis. Cannabis/marijuana information: http_s://che.nih. gov/publications/d rugfacts/cannabis- marijuana http_s://www.[employer]/cannabi n-lke-knptvvnx-mar ijuana-adhd/ http_s://www.murray. org/Pkzjo-Nvqkrn-S llness/Mental-Heal th-Conditions http_s://psychIO Turbine.com/depression /aqh-zokbrlbep-jek xltlp-fm-epyjpczcz n#treatments http__s://www.nimh .nih.gov/health/to pics/mental-health -medications http__s://www.murray .org/About-Mental- Illness/Treatments /Bszieg-Mtxerx-Wnu ications educated on all medications, benefits, side [...] by KIKE r/t cannabis use daily 04/12/2024 Intermittent explosive [...] psychosis. Cannabis/marijuana information: http_s://che.nih. gov/publications/d rugfacts/cannabis- marijuana http_s://www.[employer]/cannabi w-mlx-exviqnpy-mar ijuana-adhd/ http_s://www.murray. org/Vueso-Braolz-Z llness/Mental-Heal th-Conditions http_s://psychcent ral.com/depression /wla-jwklsbylv-plg doizj-pe-tsegrhnam n#treatments http__s://www.nimh .nih.gov/health/to pics/mental-health -medications http__s://www.murray .org/About-Mental- Illness/Treatments /Dwkcww-Xddcdw-Jji ications educated on all medications, benefits, side [...] psychosis. Cannabis/marijuana information: http_s://che.nih. gov/publications/d rugfacts/cannabis- marijuana http_s://www.[employer]/cannabi v-qnr-fbqhvipt-mar ijuana-adhd/ http_s://www.murray. 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 [...] psychosis. Cannabis/marijuana information: http_s://che.nih. gov/publications/d rugfacts/cannabis- marijuana http_s://www.[employer]/cannabi z-csv-xnbfykhb-mar ijuana-adhd/ http_s://www.murray. org/Kqqtq-Ldflpu-R llness/Mental-Heal th-Conditions http_s://psychIO Turbine.com/depression /hdp-ivdkizsxa-esj bscsw-cu-fougsjmtq n#treatments http__s://www.nimh .nih.gov/health/to pics/mental-health -medications http__s://www.murray .org/About-Mental- Illness/Treatments /Alpieh-Vhxgyb-Jha ications educated on all medications, benefits, side [...] Name Sig Start Date Stop Date Notes hydrOXYzine HCl 50 MG 1 tablet Oral thre e times a day for 90 days d/c 25 mg dose ARIPiprazole 5 MG 1 tablet at bedtime Orally Once a day for 90 days Next Appt Details Follow Up: 6 Months, Reason: f/u rx Provider Name:Edith Tylor , 10/11/2024 02:30:00 PM, [address] [facility] [address], [facility] [address], [place], [address], Progress Notes * CHARLES WESLEY: [birth year] (63 yo M)Acc No.[id number]:04/12/2024 Patient:?CHARLES WESLEY Provider:?RILEY ROSAS :1960???Age:63 Y???Sex:Male Antoine e:04/12/2024 Address:[address] [place], [place] [id number] Subjective: * Chief Complaints: * ???1. F/u visit. * HPI: ???Depression Screening:?HEAVEN-7 (2018 Edition)?Feeling nervous, anxious, or on edge?Several days,?Not being able to stop or control worrying?Several days,?Worrying too much about different things?Several days,?Trouble relaxing?Several days,?Being so restless that it is hard to sit still?Several days,?Becoming easily annoyed or irritable?Several days,?Feeling afraid as if something awful might happen?Not at all,?Total HEAVEN-7 Score?6,?If you checked any problems, how difficult have they made it for you to do your work, take care of things at home, or get along with other people??Somewhat difficult,?Interpretation of Total?(5 to 9) Mild.?Depression screening:?PHQ-9?Little interest or pleasure in doing things?Not at all,?Feeling down, depressed, or hopeless?Not at all,?Trouble falling or staying asleep, or sleeping too much?Not at all,?Feeling tired or having little energy?Not at all,?Poor appetite or overeating?Nearly every day,?Feeling bad about yourself or that you are a failure, or have let yourself or your family down?Not at all,?Trouble concentrating on things, such as reading the newspaper or watching television?Not at all,?Moving or speaking so slowly that other people could have noticed; or the opposite, being so fidgety or restless that you have been moving around a lot more than usual?Not at all,?Thoughts that you would be better off or of hurting yourself in some way?Not at all,?Total Score?3,?Interpretation?Minimal Depression.?Intervention?Depression Screening Findings?Negative,?Follow-Up for Depression?Mental health care management,?Suicide Risk Assessment Performed? ,?Additional Evaluation for Depression?Psychiatric interview and evaluation,?Name of the standardized tool used for adult depression screening:?Patient Health Questionnaire (PHQ-9).?History of Presenting Problem:? Notes: This is a 63 year old white male follow up I been doing good on rx and everybody notice a change and doing good on Abilify and Vistaril and I feel not having depression at all and no sad or down,no hopeless or helpless, anxiety daily, stay about same and Vistaril helps and everything is better, sleep is on and off,Raghavendra get enough sleep and go to work on time, and work notice a difference, also, and I go to bed early and up 4 am for work, sometimes agitation and it is better also I walk away now, no psychosis no jaguar no SI/HI,? DM on Mounjaro and weight loss and A1C in [facility] per provider unsure the number, and DM improved? I lost 30 pounds also,??I still plan to retired? 10/29/24, appetite les on injection, nothing taste good. denies SI/HI no plans or intent no thoughts harm self or others no past attempts, no FH etoh- very little couple times a month shot Tequila Smoking- denies labs- PCP? labs drugs cannabis reported works for me rx HX Buspar (mess with head), Xanax, Celexa Seroquel (reported not tolerated), Depakote (sweat), Cymbalta (sweat), Lamotrigine, Vistaril, Abilify, Vistaril. * ROS:?Patient reports?dry mouth. ?He reports?nausea (on Mounjaro)?but reports no abdominal pain, no vomiting, no constipation, no diarrhea, and no GERD. He reports less anxiety?but reports no depression,? sleep disturbances, feeling safe in a relationship, no alcohol abuse, no hallucinations, no suicidal thoughts, no mood swings, less agitation,? He reports no fever, no significant [...] Recurrent major depressive episodes, moderate, ,. * Medications:?Taking Mounjaro 5 MG/0.5ML Solution Pen-injector Subcutaneous , Notes to Pharmacist: *Reorder from [employer] for eRx and Interaction Alerts*, Taking LORazepam 0.5 MG Tablet Oral , Taking amLODIPine Besylate 10 MG Tablet Oral , Taking hydrOXYzine HCl 50 MG Tablet 1 tablet Oral three times a day , Notes to Pharmacist: d/c 25 mg dose, Taking ARIPiprazole 5 MG Tablet 1 tablet at bedtime Orally Once a day , Medication List reviewed and reconciled with the patient * Allergies:?N.K.D.A. Objective: * Vitals:?BP:159/89mm Hg, HR:9 7/min, Wt:207.6lbs, Wt-k.17 kg, Ht: 68.00 in, Ht-cm: 172.72 cm, BMI:31.56Index, Body Surface Area: 2.12. 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 1. Mild recurrent major depr ession -obtain labs PCP Abilify 5 mg bedtime [...] contribute to development of psychosis. Cannabis/marijuana information: http_s://che.nih.gov/publications/drugfacts/cannabis-marijuana http_s://www.[employer]/fmwxcccs-bqn-pgzbtrzy-marijuana-adhd/ http_s://www.murray.org/Yidyn-Nsuhvk-Cktfnyk/Oascaq-Qtxthf-Lmpexqsrqx http_s://psychcentral.com/depression/slw-fklpyxxne-kesvyals-of-depression#treatm ents http__s://www.nim.nih.gov/health/topics/axlwdd-ngorxw-ckeqaqvuicz http__s://www.murray.org/Nbolj-Gmmsxg-Jzpwuzb/Treatments/Tdsjux-Mqtqhe-Ephnjikzlty educated on all medications, benefits, side effects [...] prescribed by KIKE r/t cannabis use daily ?Vistaril 50 mg three times a day for [...] disorder - discuss and educated on options rx-? ABILIFY 5 MG AT BEDTIME Second generation [...] a day, 90 days, 90 Tablet, Refills 1.?? * Procedure Codes:?88501 BEHAV ASSMT W/SCORE & DOCD/STAND INSTRUMENT, 22812 BEHAV ASSMT W/SCORE & DOCD/STAND INSTRUMENT, G2211 VISIT COMPLEXITY INHERENT TO ONGOING CARE RELATED TO A PATIENT'S SINGLE, SERIOUS CONDITION OR A COMPLEX CONDITION * Preventive Medicine:? ??Counseling:?BP Management:?FIRST HYPERTENSIVE BP READING FOLLOW-UP PLAN:?educated on healthy b/p 120/80monitor b/p at homerefer to PCP, Urgent care/ERheart healthy diet and exciselimit salt intakelimit soda intake and caffieneincrease wateron B/P rx,?REFERRAL TO ALTERNATIVE / PRIMARY CARE PROVIDER:?____.? * Follow Up:?6 Months (Reason: f/u rx) * Billing Information: * Visit Code:? 81048 OFFICE OUTPATIENT VISIT 25 MINUTES DETAILED HISTORY AND EXAM/MODERATE MEDICAL DECISION MAKING. * Procedure Codes:? 46607 BEHAV ASSMT W/SCORE & DOCD/STAND INSTRUMENT. 47422 BEHAV ASSMT W/SCORE & DOCD/STAND INSTRUMENT. G2211 VISIT COMPLEXITY INHERENT TO ONGOING CARE RELATED TO A PATIENT'S SINGLE, SERIOUS CONDITION OR A COMPLEX CONDITION. * Sign off status: Completed true * Provider:?RILEY ROSAS Date:? Generated for Ayaan roa/Andi/Tristonitting on:?07/21/2024 09:17 PM [employer] History and Physical Notes * HPI (History of Present Illness) Category Sub-Category Detail Notes Category Not es History of Presenting Problem Notes: This is a 63 year old white male follow up I been doing good on rx and everybody notice a change and doing good on Abilify and Vistaril and I feel not having depression at all and no sad or down,no hopeless or helpless, anxiety daily, stay about same and Vistaril helps and everything is better, sleep is on and off,Raghavendra get enough sleep and go to work on time, and work notice a difference, also, and I go to bed early and up 4 am for work, sometimes agitation and it is better also I walk away now, no psychosis no jaguar no SI/HI, DM on Mounjaro and weight loss and A1C in [facility] per provider unsure the number, and DM improved I lost 30 pounds also, I still plan to retired 10/29/24, appetite les on injection, nothing taste good. denies SI/HI no plans or intent no thoughts harm self or others no past attempts, no FH etoh- very little couple times a month shot Tequila Smoking- denies labs- PCP labs drugs cannabis reported works for me rx HX Buspar (mess with head), Xanax, Celexa Seroquel (reported not tolerated), Depakote (sweat), Cymbalta (sweat), Lamotrigine, Vistaril, Abilify, Vistaril Depression screening PHQ-9 Little inte rest or pleasure in doing things: Not at all Feeling down, depressed, or hopeless: No t at all Trouble falling or staying asleep, or sl eeping too much: Not at all Feeling tired or having little energy: N ot at all Poor appetite or overeating: Nearly ever y day Feeling bad about yourself o r that you are a failure, or have let yourself or your family down: Not at all Trouble concentrating on thi ngs, such as reading the newspaper or watching television: Not at all Moving or speaking so slowly that other people could have noticed; or the opposite, being so fidgety or restless that you have been moving around a lot more than usual: Not at all Thoughts that you would be b timothy off or of hurting yourself in some way: Not at all Total Score: 3 Interpretation: Minimal Depression Intervention Depression Screening Findings: N egative Follow-Up for Depression: Mental health care management Suicide Risk Assessment Performed: ____ Additional Evaluation for Depression: Ps ychiatric interview and evaluation Name of the standardized too l used for adult depression screening:: Patient Health Questionnaire (PHQ-9) Depression Screening HEAVEN-7 (2018 Edition) Feelin g nervous, anxious, or on edge: Several days Not being able to stop or control worryi ng: Several days Worrying too much about different things : Several days Trouble relaxing: Several days Being so restless that it is hard to sit still: Several days Becoming easily annoyed or irritable: Se veral days Feeling afraid as if something awful kimani ht happen: Not at all Total HEAVEN-7 Score: 6 If you checked any problems, how difficult have they made it for you to do your work, take care of things at home, or get along with other people?: Somewhat difficult Interpretation of Total: (5 to 9) Mild Examination Category Sub-Category Detail Notes Category Not [...] Intellectual function: a verage Dementia Safety concern cesar nunez for dangerousness to self and environment risks [...]
== END 2024-07-20 07:40 | disposition home or self-care (01) ==
LOC: ANHLAB 07:41
PROVIDERS: PCP Nurse Practitioner Family; Visit Provider Nurse Practitioner Family
DX: E78.5 Hyperlipidemia, unspecified (principal); I10 Essential (primary) hypertension; E11.9 Type 2 diabetes mellitus without complications; F41.9 Anxiety disorder, unspecified
CPT/HCPCS: 36415; 80053; 80061; 83036; 84443

== ENCOUNTER 2025-01-24 08:36 | Outpatient (CLI) | payer MEDICARE, SELFPAY ==
--- OUTSIDE RECORDS SUMMARY | 2025-01-24 08:42 | XMS_ITS | Clinical Summary ---
Author Organization [facility] Address [address] [place] [id number] Care Team Providers Care Medical Consultant Name Role Phone Unavailable Primary Care Provider [...] Colorectal Cancer Screening Colonoscopy (10 Years) 1960 Hepatitis C 10/29/1977 DTaP, Tdap and Td Vaccines ( 1 - Tdap) 10/29/1978 Pneumococcal Vaccine: 50+ Ye ars (1 of 1 - PCV) 10/29/2009 Zoster Vaccines (1 of 2) 10/29/2009 COVID-19 Vaccine ( - 2023-2 5 season) 2024 RSV Immunization or 60+ Years (1 - 1-dose 75+ series) 10/29/2034 Meningococcal B Vaccine Aged Out No l onger eligible based on patient's age to complete this topic Meningococcal Vaccine Aged Out No lamonte skyler eligible based on patient's age to complete this topic RSV Immunizations Under 20 Months Aged Out No longer eligible based on patient's age to complete this topic
--- OUTSIDE RECORDS SUMMARY | 2025-01-24 08:42 | XMS_ITS | Clinical Summary ---
Author Organization [facility] Address [address] [address] Phone Care Team Providers Care Docent Coordinator Name Role Phone Ryan Sabrina OSULLIVAN Unavailable No, Physician Primary Care Provider [phone] Allergies Active Allergy Reactions Criticality Noted Date Comments Buspirone Agitation Low 08/18/2022 Duloxetine Agitation Low 08/18/2022 Xhxedxh-Gwb-Rbm Reductase Inhibitors Muscle pain Medium 08/18/2022 Medications [...] by mouth daily 90 tablet 2 4 Active metFORMIN (GLUCOPHAGE) 1,000 mg tabletIndicati ons:Type 2 diabetes mellitus with hyperglycemia, without long-term current use of insulin (HCC) Take 1 tablet (1,000 mg total) by mouth daily with breakfast 90 tablet 2 4 Active valsartan (DIOVAN) 320 mg tabletIndicati ons:Hypertensi on associated with diabetes (HCC) Take 1 tablet (320 mg total) by mouth daily 90 tablet 2 4 Active ezetimibe (ZETIA) 10 mg tabletIndicati ons:Hyperlipid [...] statins. Assessment & Plan (08/21/2023 8:13 AM DRIVER MANAGER): A1c at goal of less than 8.0, continue current prescription medications, Jardiance, metformin, valsartan. Assessment & Plan (02/17/2023 2:29 PM CDT): A1c at goal of less than 8.0, continue current prescription medications, Jardiance, metformin, valsartan. Assessment & Plan (08/18/2022 8:54 PM DRIVER MANAGER): Labs ordered, cont current medications. Will follow. Generalized anxiety disorder 08/18/2022 Assessment & Plan (08/21/2023 8:14 AM DRIVER MANAGER): Stable. Cont. Current prescription medications, lorazepam. Followed by psychiatrist. Assessment & Plan (02/17/2023 2:30 PM CDT): Discontinue hydroxyzine and Seroquel per patient request. Will give trial of lorazepam. Patient understand this is just 1 tablet a day p.r.n.. If patient requires more, consider new referral to Psychiatry for further evaluation and management. Assessment & Plan (08/18/2022 8:53 PM DRIVER MANAGER): Initially offered patient a substitution for his [...] 08/18/2022 Assessment & Plan (08/21/2023 8:14 AM DRIVER MANAGER): Statin myopathy, low chol diet recommended. Assessment & Plan (02/17/2023 2:29 PM CDT): Unable to tolerate statins, patient on Zetia. Assessment & Plan (08/18/2022 8:49 PM DRIVER MANAGER): Unable to tolerate statins, low chol diet recommended to help lower cholesterol. Hyperlipidemia associated with type 2 diabetes lam dee 11/12/2013 Overview (08/18/2022): Assessment & Plan (09/07/2023 8:16 PM CDT): LDL near goal of < 100, low chol diet recommended. Continue Zetia, patient intolerant to statins. Assessment & Plan (08/21/2023 8:12 AM DRIVER MANAGER): LDL is near goal of < 100, low chol diet recommended. Statin intolerance, continue Zetia. Assessment & Plan (02/17/2023 2:29 PM CDT): LDL at goal of less than 100, continue current prescription medications, Zetia. Patient intolerant to statins. Assessment & Plan (08/18/2022 8:55 PM DRIVER MANAGER): Low chol diet recommended. Continue Zetia. Hypertension associated with diabetes 11/12/2013 Overview (08/18/2022): Assessment & Plan (09/07/2023 8:16 PM CDT): Blood pressure at goal less than 140/90, continue current prescription medications, amlodipine, valsartan. Assessment & Plan (08/21/2023 8:13 AM DRIVER MANAGER): Blood pressure at goal less than 140/90, continue current prescription medications, amlodipine, valsartan. Assessment & Plan (08/18/2022 8:55 PM DRIVER MANAGER): Slightly above goal of < 140/90, cont [...] and management. Trial of or steroids. Immunizations Immunization Administration Dates Next Due Influenza, Quadrivalent, Spl [...] 91 02/22/2024 1:03 PM CDT Temperature 36.8 C (98.2 F) 11/11/2023 9:28 AM CDT Respiratory Rate 18 11/11/2023 9:28 AM CDT Oxygen Saturation 100% 11/11/2023 9:28 AM CDT Inhaled Oxygen Concentration - - Weight 95.7 kg (211 lb) 02/22/2024 1:03 PM CDT Height 172.7 cm (5' 8) 02/22/2024 1:03 PM CDT Body Mass Index 32.08 02/22/2024 1:03 PM CDT Plan of Treatment Health Maintenance Due Date Last Done Comments Dilated Eye Exam 1960 Hepatitis B Screening 10/29/1977 Pneumococcal vaccine 65+ (1 of 2 - PCV) 10/29/1978 Zoster Vaccine (1 of 2) 10/29/2009 Fall Risk Assessment 02/18/2024 02/17/2023, 10/28/2022, 08/18/2022 Foot Exam 02/18/2024 02/17/2023 Hemoglobin A1C 02/18/2024 08/20/2023, 01/28, 08/18/2022 Covid-19 Vaccine (2023-2 5 season) 2024 02/04/2021, 01/14/2021 Prostate Cancer Screening-PSA 08/18/2024 08/18/2022, 08/26/2012 Albumin Creatinine Ratio, Urine 08/20/2024 08/20/2023, 02/17/2023, 08/18/2022 Depression Screening 08/20/2024 08/20/2023, 02/17/2023, 10/28/2022, Additional history exists Lipid Panel 08/20/2024 08/20/2023, 01/28, 08/18/2022, Additional history exists eGFR 08/20/2024 08/20/2023, 01/28, 08/18/2022 Well Visit 65+ 10/29/2024 08/20/2023, 08/18/2022 Influenza Vaccine (#1) 2025 , 04/06/2022, 03/15/2021, Additional history exists Colon Cancer Screening-Colonoscopy 11/10/20282023, 08/14/2011 DTaP/Tdap/Td Vaccine (2 - Td or Tdap) 08/18/2032 08/18/2022 Hepatitis C Screening Completed 08/18/2022 Procedures Procedure Name Priority Date/Time Associated Diagnosis Comments COLONOSCOPY 11/11/2023 7:15 AM CDT EGFR Routine 08/20/2023 2:57 PM DRIVER MANAGER Annual physical exam Hypertension associated with diabetes (HCC) Hyperlipidemia associated with type 2 diabetes mellitus (HCC) Type 2 diabetes mellitus with hyperglycemia, without long-term current use of insulin (HCC) Encounter for screening for other digestive system disorders HEMOGLOBIN A1C Routine 08/20/2023 2:57 PM DRIVER MANAGER Annual physical exam Type 2 diabetes mellitus with hyperglycemia, without long-term current use of insulin (HCC) LIPID PANEL Routine 08/20/2023 2:57 PM DRIVER MANAGER Annual physical exam Hypertension associated with diabetes (HCC) Hyperlipidemia associated with type 2 diabetes mellitus (HCC) Type 2 diabetes mellitus with hyperglycemia, without long-term current use of insulin (HCC) ALBUMIN CREATININE RATIO, URINE Routine 08/20/2023 2:57 PM DRIVER MANAGER Type 2 diabetes mellitus with hyperglycemia, without long-term current use of insulin (HCC) HEPATITIS C ANTIBODY Routine 08/18/2022 2:46 PM DRIVER MANAGER Annual physical exam Encounter for hepatitis C screening test for low risk patient PSA SCREEN Routine 08/18/2022 2:46 PM DRIVER MANAGER Screening PSA (prostate specific antigen) from Last 3 Months or Most Recently Relevant to Health Maintenance Results * Colonoscopy (11/11/2023 7:15 AM CDT) Anatomical Region Laterality Modality Other Narrative Procedure Note Arabella Khanna MD - 11/11/2023 7:15 AM CDT [facility] Patient Name: Pavel Corbett Procedure Date: 11/11/2023 7:15 AM Date of : 1960 Admit Type: Outpatient Age: 63 Gender: Male Attending MD: Arabella Khanna M.D. Room: [facility] ENDOSCOPY ROOM 1 Note Status: Finalized Patient [...] under direct vision. The Pediatric Colonoscope [id number] was introducedthrough the anus and advanced to [...] 7:15 AM Procedure Code(s): --- Professional --- 60701, Colonoscopy, flexible; with biopsy, single or multiple Diagnosis Code(s): --- Professional --- Z12.11, Encounter for screening for malignant neoplasm of colon K64.8, Other hemorrhoids D12.2, Benign neoplasm of ascending colon D12.3, Benign neoplasm of transverse colon (hepatic flexure orsplenic flexure) K57.30, Diverticulosis of large intestine without perforation orabscess without bleeding CPT copyright 2020 [employer]. All rights reserved. The codes documented in this report are preliminary and upon manager configuration reviewmay be revised to meet current compliance requirements. Recognized by the [employer] for promoting quality in endoscopy us Arabella Khanna MD ENDOSCOPY PROCEDURES Final Result * eGFR (08/20/2023 2:57 PM DRIVER MANAGER) eGFR 98 mL/min/1. 73 m2 [facility] (JM) Comment: Interpretive Data Reference Interval Normal >/= 90 mL/min/1.73m2 Mildly decreased* 60 - 89 mL/min/1.73m2 Mildly to moderately decreased 45 - 59 mL/min/1.73m2 Moderately to severely decreased 30 - 44 mL/min/1.73m2 Severely decreased 15 - 29 mL/min/1.73m2 Kidney Failure < 15 mL/min/1.73m2 *Relative to young adult level Estimated glomerular [...] last reviewed 2021. Blood 08/20/2023 2:57 PM DRIVER MANAGER 08/20/2023 3:02 PM DRIVER MANAGER us Eleanor Arciniega DO LAB BLOOD ORDERABLES Final Result [facility] (JM) 1 [facility] Department of Laboratories [place], [place] [id number] * Albumin Creatinine Ratio, Urine (08/20/2023 2:57 PM DRIVER MANAGER) Albumin Ur <12.0 mg/L [facility] (JM) Comment: Interpretive Data No reference range established. Current interpretive data was last revised 2018. Testing performed by: [facility], [address] [place] [address]., [id number] Creatinine Ur 90.8 mg/dL [facility] (JM) Comment: Interpretive Data No reference range established. Current interpretive data was last revised 2018. Testing performed by: [facility], [address] [place] [address]., [id number] Albumin Creatinine Ratio, Ur <13 1 - 29 mg/g [facility] (JM) Comment:Testing performed by : [facility], [address] [place] [address]., [id number] Urine 08/20/2023 2:57 PM DRIVER MANAGER 08/20/2023 7:25 PM DRIVER MANAGER Eleanor Arciniega DO LAB URINE ORDERABLES Final Result Performing Organization Address [facility] de Phone Number [facility] 1 [facility] [place] [address] * (ABNORMAL) Hemoglobin A1c (08/20/2023 2:57 PM DRIVER MANAGER) Hgb A1C 7.5(H) 4.0 - 5.6 % [facility] (JM) Estimated Average Glucose 169 mg/dL [facility] (JM) Comment: The ADA recommends reporting an estimated Average Glucose (eAG) with all Hemoglobin A1c results using the equation derived from a study of 507 normal and diabetic adults. Minority populations were underrepresented and children were not included. (Diabetes Care 31:7207-4116, 2008). The eAG is not equivalent to a fasting glucose. Blood 08/20/2023 2:57 PM DRIVER MANAGER 08/20/2023 3:02 PM DRIVER MANAGER Eleanor Arciniega DO LAB BLOOD ORDERABLES Final Result Performing Organization Address [facility]/ZIP Co de Phone Number [facility] 1 [facility] [place] [address] * Lipid panel (08/20/2023 2:57 PM DRIVER MANAGER) Cholesterol 181 30 - 199 mg/dL [facility] (JM) Comment: Interpretive Data Ages < or = 19 years Acceptable: <170 mg/dL Borderline high: 170-199 mg/dL High: >or= 200 mg/dL Ages > or = 20 years Desirable: <200 mg/dL Borderline high: 200-239 mg/dL High: >or= 240 mg/dL Literature References: 1. Expert Panel on Integrated Guidelines for Cardiovascular Health and Risk Reduction in Children and Adolescents. Pediatrics 2011;128:S213 2. NCEP Expert Panel. Circulation 2004;110:227 Current Interpretive Data was last revised on 2018. Triglycerides 119 <=149 mg/dL [facility] (JM) Comment: Interpretive Data Ages < or = 9 years Acceptable: <75 mg/dL Borderline high: 75-99 mg/dL High: >or= 100 mg/dL Ages 10 to 20 years Acceptable: <90 mg/dL Borderline high: 90-129 mg/dL High: >or= 130 mg/dL Ages > or = 20 years Desirable: <150 mg/dL Borderline high: 150-199 mg/dL High: 200-499 mg/dL Very high: >or= 499 mg/dL Literature References: 1. Expert Panel on Integrated Guidelines for Cardiovascular Health and Risk Reduction in Children and Adolescents. Pediatrics 2011;128:S213 2. NCEP Expert Panel. Circulation 2004;110:227 Current Interpretive Data was last revised on 2018. HDL 54 >=40 mg/dL [facility] (JM) Comment: Interpretive Data Ages < or = 19 years Acceptable: >45 mg/dL Borderline low: 40-45 mg/dL Low: <40 mg/dL Ages > or = 20 years Desirable: >or= 60 mg/dL Low: <40 mg/dL Literature References: 1. Expert Panel on Integrated Guidelines for Cardiovascular Health and Risk Reduction in Children and Adolescents. Pediatrics 2011;128:S213 2. NCEP Expert Panel. Circulation 2004;110:227 Current Interpretive Data was last revised on 2018. LDL, calculated 103 <=129 mg/dL [facility] (JM) Comment: Interpretive Data Ages < or = 19 years Acceptable: <110 mg/dL Borderline high: 110-129 mg/dL High: >or= 130 mg/dL Ages > or = 20 years Optimal: <100 mg/dL Near optimal: 100-129 mg/dL Borderline high: 130-159 mg/dL High: >160 mg/dL Literature References: 1. Expert Panel on Integrated Guidelines for Cardiovascular Health and Risk Reduction in Children and Adolescents. Pediatrics 2011;128:S213 2. NCEP Expert Panel. Circulation 2004;110:227 Current Interpretive Data was last revised on 2018. Non-HDL Cholesterol 127 mg/dL [facility] (JM) Comment: Interpretive Data Ages < or = 19 years Acceptable: <120 mg/dL Borderline high: 120-144 mg/dL High: >145 mg/dL Ages > or = 20 years When triglycerides are >200 mg/dL, Non-HDL cholesterol is a secondary target of therapy with treatment goals that are 30 mg/dL greater than the LDL cholesterol target. Literature References: 1. Expert Panel on Integrated Guidelines for Cardiovascular Health and Risk Reduction in Children and Adolescents. Pediatrics 2011;128:S213 2. NCEP Expert Panel. Circulation 2004;110:227 Current Interpretive Data was last revised on 2018. Chol/HDL ratio 3 [facility] (JM) Blood 08/20/2023 2:57 PM DRIVER MANAGER 08/20/2023 3:02 PM DRIVER MANAGER us Eleanor Arciniega DO LAB BLOOD ORDERABLES Final Result Performing Organization Address City/[facility]/ZIP Co de Phone Number [facility] (JM) 1 [facility] [place] [address] * PSA screen (08/18/2022 2:46 PM DRIVER MANAGER) PSA-Total 1.14 <=5.40 ng/mL [facility] (JM) Blood 08/18/2022 2:46 PM DRIVER MANAGER 08/18/2022 3:33 PM DRIVER MANAGER Eleanor Arciniega DO LAB BLOOD ORDERABLES Final Result Performing Organization Address City/[facility] Co de Phone Number [facility] BRYANT (JM) 1 [facility] [place] [address] * Hepatitis C antibody (08/18/2022 2:46 PM DRIVER MANAGER) Hep C Ab Nonreactive Nonreactive [facility] ([place]) Comment: Interpretive Data Nonreactive: Antibodies to HCV not detected. Does NOT exclude the possibility of recent exposure to HCV. Equivocal: Equivocal for HCV antibodies. Supplemental molecular testing will be automatically performed to determine infection status in accordance with current CDC screening recommendations. Reactive: Positive for HCV antibodies. This may represent current or past HCV infection. Supplemental molecular testing will be automatically performed to determine current infection status in accordance with current CDC screening recommendations. Interpretive data was last revised on 2019. Testing performed by: [facility], [address] [place] [address]., [id number] Blood 08/18/2022 2:46 PM DRIVER MANAGER 08/18/2022 7:36 PM DRIVER MANAGER Eleanor Arciniega DO LAB MICROBIOLOGY - GENERAL ORDERABLES Edited Result - Final [facility] ([place]) 1 [facility] [place] [address] from Last 3 Months or Most Recently Relevant to Health Maintenance Insurance [employer] OPEN ACCESS Advance Directives For more information, please contact: [phone] * Full Code (Latest Code Status on File) Date Activated Date Inactivated Comments 11/11/2023 7:37 AM 11/11/2023 1:50 PM Care Teams Docent Coordinator Relationship Specialty Start Date End Date No, Physician PCP - General 04/13/24 Sabrina Davis PA [address] [place] [address] DR RAMIREZ [address] [place] [id number] Physician Property Loss Insurance Claim Adjuster Orthopedic Surgery 02/17/23
--- OUTSIDE RECORDS SUMMARY | 2025-01-24 08:42 | XMS_ITS | Referral Summary ---
Author Organization [facility] Address [address] [address] Phone Care Team Providers Care [employer] Name Role Phone Ryan Sabrina OSULILVAN Unavailable No, Physician Primary Care Provider [phone] Allergies Active Allergy Reactions Criticality Noted Date Comments Buspirone Agitation Low 08/18/2022 Duloxetine Agitation Low 08/18/2022 Ykcpoyx-Zhn-Mmn Reductase Inhibitors Muscle pain Medium 08/18/2022 Medications [...] statins. Assessment & Plan (08/21/2023 8:13 AM GAME PROGRAMER): A1c at goal of less than 8.0, continue current prescription medications, Jardiance, metformin, valsartan. Assessment & Plan (02/17/2023 2:29 PM CDT): A1c at goal of less than 8.0, continue current prescription medications, Jardiance, metformin, valsartan. Assessment & Plan (08/18/2022 8:54 PM GAME PROGRAMER): Labs ordered, cont current medications. Will follow. Generalized anxiety disorder 08/18/2022 Assessment & Plan (08/21/2023 8:14 AM GAME PROGRAMER): Stable. Cont. Current prescription medications, lorazepam. Followed by psychiatrist. Assessment & Plan (02/17/2023 2:30 PM CDT): Discontinue hydroxyzine and Seroquel per patient request. Will give trial of lorazepam. Patient understand this is just 1 tablet a day p.r.n.. If patient requires more, consider new referral to Psychiatry for further evaluation and management. Assessment & Plan (08/18/2022 8:53 PM GAME PROGRAMER): Initially offered patient a substitution for his [...] 08/18/2022 Assessment & Plan (08/21/2023 8:14 AM GAME PROGRAMER): Statin myopathy, low chol diet recommended. Assessment & Plan (02/17/2023 2:29 PM CDT): Unable to tolerate statins, patient on Zetia. Assessment & Plan (08/18/2022 8:49 PM GAME PROGRAMER): Unable to tolerate statins, low chol diet recommended to help lower cholesterol. Hyperlipidemia associated with type 2 diabetes lam dee 11/12/2013 Overview (08/18/2022): Assessment & Plan (09/07/2023 8:16 PM CDT): LDL near goal of < 100, low chol diet recommended. Continue Zetia, patient intolerant to statins. Assessment & Plan (08/21/2023 8:12 AM GAME PROGRAMER): LDL is near goal of < 100, low chol diet recommended. Statin intolerance, continue Zetia. Assessment & Plan (02/17/2023 2:29 PM CDT): LDL at goal of less than 100, continue current prescription medications, Zetia. Patient intolerant to statins. Assessment & Plan (08/18/2022 8:55 PM GAME PROGRAMER): Low chol diet recommended. Continue Zetia. Hypertension associated with diabetes 11/12/2013 Overview (08/18/2022): Assessment & Plan (09/07/2023 8:16 PM CDT): Blood pressure at goal less than 140/90, continue current prescription medications, amlodipine, valsartan. Assessment & Plan (08/21/2023 8:13 AM GAME PROGRAMER): Blood pressure at goal less than 140/90, continue current prescription medications, amlodipine, valsartan. Assessment & Plan (08/18/2022 8:55 PM GAME PROGRAMER): Slightly above goal of < 140/90, cont [...] AM CDT EGFR Routine 08/20/2023 2:57 PM GAME PROGRAMER Annual physical exam Hypertension associated with diabetes (HCC) Hyperlipidemia associated with type 2 diabetes mellitus (HCC) Type 2 diabetes mellitus with hyperglycemia, without long-term current use of insulin (HCC) Encounter for screening for other digestive system disorders HEMOGLOBIN A1C Routine 08/20/2023 2:57 PM GAME PROGRAMER Annual physical exam Type 2 diabetes mellitus with hyperglycemia, without long-term current use of insulin (HCC) LIPID PANEL Routine 08/20/2023 2:57 PM GAME PROGRAMER Annual physical exam Hypertension associated with diabetes (HCC) Hyperlipidemia associated with type 2 diabetes mellitus (HCC) Type 2 diabetes mellitus with hyperglycemia, without long-term current use of insulin (HCC) ALBUMIN CREATININE RATIO, URINE Routine 08/20/2023 2:57 PM GAME PROGRAMER Type 2 diabetes mellitus with hyperglycemia, without long-term current use of insulin (HCC) HEPATITIS C ANTIBODY Routine 08/18/2022 2:46 PM GAME PROGRAMER Annual physical exam Encounter for hepatitis C screening test for low risk patient PSA SCREEN Routine 08/18/2022 2:46 PM GAME PROGRAMER Screening PSA (prostate specific antigen) from Last 3 Months or Most Recently Relevant to Health Maintenance Results * Colonoscopy (11/11/2023 7:15 AM CDT) Anatomical Region Laterality Modality Other Narrative Procedure Note Arabella Khanna MD - 11/11/2023 7:15 AM CDT [facility] Patient Name: Pavel Corbett Procedure Date: 11/11/2023 7:15 AM Date of : 1960 Admit Type: Outpatient Age: 63 Gender: Male Attending MD: Arabella Khanna M.D. Room: [facility]COPY ROOM 1 Note Status: Finalized Patient [...] under direct vision. The Pediatric Colonoscope [id number] was introducedthrough the anus and advanced to [...] 7:15 AM Procedure Code(s): --- Professional --- 62540, Colonoscopy, flexible; with biopsy, single or multiple Diagnosis Code(s): --- Professional --- Z12.11, Encounter for screening for malignant neoplasm of colon K64.8, Other hemorrhoids D12.2, Benign neoplasm of ascending colon D12.3, Benign neoplasm of transverse colon (hepatic flexure orsplenic flexure) K57.30, Diverticulosis of large intestine without perforation orabscess without bleeding CPT copyright 2020 [employer]. All rights reserved. The codes documented in this report are preliminary and upon bailing machine operator reviewmay be revised to meet current compliance requirements. Recognized by the [employer] for promoting quality in endoscopy us Arabella Khanna MD ENDOSCOPY PROCEDURES Final Result * eGFR (08/20/2023 2:57 PM GAME PROGRAMER) eGFR 98 mL/min/1. 73 m2 [facility] [...] last reviewed 2021. Blood 08/20/2023 2:57 PM GAME PROGRAMER 08/20/2023 3:02 PM GAME PROGRAMER us Eleanor Arciniega DO LAB BLOOD ORDERABLES Final Result [facility] ([place]) 1 [facility] Department [place] [address] * Albumin Creatinine Ratio, Urine (08/20/2023 2:57 PM GAME PROGRAMER) Albumin Ur <12.0 mg/L AUNG [facility] (JM) Comment: Interpretive Data No reference range established. Current interpretive data was last revised 2018. Testing performed by: [facility], [address] [place] [address]., [id number] Creatinine Ur 90.8 mg/dL [facility] (JM) Comment: Interpretive Data No reference range established. Current interpretive data was last revised 2018. Testing performed by: [facility], [address] [place] [address]., [id number] Albumin Creatinine Ratio, Ur <13 1 - 29 mg/g [facility] (JM) Comment:Testing performed by : [facility], [address] [place] [address]., [id number] Urine 08/20/2023 2:57 PM GAME PROGRAMER 08/20/2023 7:25 PM GAME PROGRAMER Eleanor Arciniega LAB URINE ORDERABLES Final Result Performing Organization Address [facility] de Phone Number [facility] (JM) 1 [facility] [employer] [place] [address] * (ABNORMAL) Hemoglobin A1c (08/20/2023 2:57 PM GAME PROGRAMER) Hgb A1C 7.5(H) 4.0 - 5.6 % [facility] (JM) Estimated Average Glucose 169 mg/dL [facility] (JM) Comment: The ADA recommends reporting an estimated Average Glucose (eAG) with all Hemoglobin A1c results using the equation derived from a study of 507 normal and diabetic adults. Minority populations were underrepresented and children were not included. (Diabetes Care 31:7410-0495, 2008). The eAG is not equivalent to a fasting glucose. Blood 08/20/2023 2:57 PM GAME PROGRAMER 08/20/2023 3:02 PM GAME PROGRAMER Eleanor Arciniega DO LAB BLOOD ORDERABLES Final Result Performing Organization Address [facility] de Phone Number [facility] (JM) 1 [facility] [place] [address] * Lipid panel (08/20/2023 2:57 PM GAME PROGRAMER) Cholesterol 181 30 - 199 mg/dL [facility] (JM) Comment: Interpretive Data Ages < or [...] revised on 2018. Non-HDL Cholesterol 127 mg/dL [facility]JAY[facility]ON [facility] (JM) Comment: Interpretive Data Ages < [...] on 2018. Chol/HDL ratio 3 ENMA [facility] ([place]) Blood 08/20/2023 2:57 PM GAME PROGRAMER 08/20/2023 3:02 PM GAME PROGRAMER Eleanor Arciniega DO LAB BLOOD ORDERABLES Final Result Performing Organization Address City/[facility] de Phone Number [facility] (JM) 1 [facility] [employer] [place] [address] * PSA screen (08/18/2022 2:46 PM GAME PROGRAMER) Pathologist [facility] PSA-Total 1.14 <=5.40 ng/mL [facility] (JM) Blood 08/18/2022 2:46 PM GAME PROGRAMER 08/18/2022 3:33 PM GAME PROGRAMER Eleanor Arciniega DO LAB BLOOD ORDERABLES Final Result Performing Organization Address City/[facility] de Phone Number [facility] (JM) 1 [facility] [employer] [place] [address] * Hepatitis C antibody (08/18/2022 2:46 PM GAME PROGRAMER) Pathologist [facility] Hep C Ab Nonreactive Nonreactive [facility] ([place]) Comment: Interpretive Data Nonreactive: Antibodies to HCV [...] last revised on 2019. Testing performed by: [facility], [address] [place] [address]., [id number] Blood 08/18/2022 2:46 PM GAME PROGRAMER 08/18/2022 7:36 PM GAME PROGRAMER us Eleanor Arciniega DO LAB MICROBIOLOGY - GENERAL ORDERABLES Edited Result - Final [facility] ([place]) 1 [facility] Department [place] [address] from Last 3 Months or Most Recently Relevant to Health Maintenance Insurance [employer] OPEN ACCESS Advance Directives For more information, please contact: [phone] * Full Code (Latest Code Status on File) Date Activated Date Inactivated Comments 11/11/2023 7:37 AM 11/11/2023 1:50 PM Care Teams [employer] Relationship Specialty Start Date End Date No, Physician PCP - General 04/13/24 Sabrina Davis PA [address] [place] [address] [address], [place] [address] Physician Line Pilot Orthopedic Surgery 02/17/23
--- OUTSIDE RECORDS SUMMARY | 2025-01-24 08:42 | XMS_ITS | Patient Health Record ---
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 Name Role Phone Janis Grant Primary Care Provider Edith Desouza Unavailable [phone] Allergies No Known Allergies Reason For Referral No Information Medications Medication SIG (Take, Route, Frequency, Duration) Notes Start Date End Date Status LORazepam 0.5 MG Oral 08/31/2023 Ac tive amLODIPine Besylate 10 MG Oral 08/31/2023 Active Mounjaro 5 MG/0.5ML Subcutaneous *Reorder fro m Medispan for eRx and Interaction Alerts* 08/31/2023 Active ARIPiprazole 5 MG 1 tablet at bedtime Orally Once a day; Duration: 90 days Active hydrOXYzine HCl 50 MG 1 tablet Oral three times a day; Duration: 90 days Active Immunizations Vaccine Route Administration [...] Risk Notes Problem Mild recurrent major depression (61597202) Major depressive disorder, recurrent, mild (F33.0) 08/31/19 24 Active confirmed Problem Generalized anxiety disorder (51936296) Generalized anxiety disorder (F41.1) 08/31/19 24 Active confirmed Problem Intermittent explosive disorder (93331585) Intermittent explosive disorder (F63.81) 08/31/19 24 Active confirmed Problem Screening for cardiovascular system disease (691523598) Encounter for screening for cardiovascular disorders (Z13.6) Active confirmed Problem Dietary management surveillance (628501502) Dietary counseling and surveillance (Z71.3) Active confirmed Problem Long-term current use of drug therapy (413107861) 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 (Z79.899) 08/31/19 24 Active confirmed Problem Marijuana use (F12.90) Active confirmed Vital Signs Heart Rate 93 /min 10/14/2024 Height-cm 172.72 cm 10/14/2024 Blood pressure diastolic 79 mm Hg 10/14/2024 Weight-kg 98.88 kg 10/14/2024 Height 68.00 in 10/14/2024 Blood pressure systolic 156 mm Hg 10/14/2024 Weight 218 lbs 10/14/2024 BMI 33.14 kg/m2 10/14/2024 Encounters Encounter Location Date Provider Diagnosis [facility] [address] [address] 03/01/2024 Edith Snider Generalized anxiety disorder F41.1 ; Major depressive disorder, recurrent, mild F33.0 ; Intermittent explosive disorder F63.81 ; Marijuana use F12.90 and Other skilled nursing (current) drug therapy Z79.899 [facility] [address] [address] 04/12/2024 Edith Snider Generalized anxiety disorder F41.1 ; Major depressive disorder, recurrent, mild F33.0 ; Intermittent explosive disorder F63.81 ; Marijuana use F12.90 and Other skilled nursing (current) drug therapy Z79.899 [facility] [address] [address] 10/14/2024 Edith Snider Generalized anxiety disorder F41.1 ; Major depressive disorder, recurrent, mild F33.0 ; Intermittent explosive disorder F63.81 ; Marijuana use F12.90 ; Other skilled nursing (current) drug therapy Z79.899 ; Encounter for screening for cardiovascular disorders Z13.6 and Dietary counseling and surveillance Z71.3 Assessments Encounter Date Diagnosis (ICD Code) Assessment Notes Treatment Notes Treatment Clinical Notes Section Notes 03/01/2024 Major depressive disorder, recurrent, mild (ICD-10 [...] can negatively impact mood, motivation, anxiety, sleep, focus/concentrati on/memory (vigilance, elasticity, processing and attention); can also contribute to development of psychosis. Cannabis/marijuan a information: http_s://che.nih .gov/publications /drugfacts/cannab is-marijuana http_s://www.[employer]/trend.lya pdo-vvn-bxpiboui- marijuana-adhd/ http_s://www.murray .org/About-Mental -Illness/Mental-H ealth-Conditions http_s://psychE-Buy/depressi on/the-cognitive- tmbtamxn-gk-xqiiq ssion#treatments http__s://www.nim .nih.gov/health/ topics/mental-hea lth-medications http__s://www.nam i.org/About-Menta l-Illness/Treatme nts/Mental-Health -Medications educated on all medications, benefits, side effects [...] can negatively impact mood, motivation, anxiety, sleep, focus/concentrati on/memory (vigilance, elasticity, processing and attention); can also contribute to development of psychosis. Cannabis/marijuan a information: http_s://che.nih .gov/publications /drugfacts/cannab is-marijuana http_s://www.[employer]/canna qba-ued-yqqociop- marijuana-adhd/ http_s://www.murray .org/About-Mental -Illness/Mental-H ealth-Conditions http_s://psychcen tral.com/depressi on/the-cognitive- mgjponiu-wf-wtoxc ssion#treatments http__s://www.nim .nih.gov/health/ topics/mental-hea lth-medications http__s://www.nam i.org/About-Menta l-Illness/Treatme nts/Mental-Health -Medications educated on all medications, benefits, side effects [...] by [facility] r/t cannabis use daily 04/12/2024 Generalized anxiety disorder (ICD-10 - F41.1) [...] can negatively impact mood, motivation, anxiety, sleep, focus/concentrati on/memory (vigilance, elasticity, processing and attention); can also contribute to development of psychosis. Cannabis/marijuan a information: http_s://che.nih .gov/publications /drugfacts/cannab is-marijuana http_s://www.[employer]/canna pla-zln-hlzbfqel- marijuana-adhd/ http_s://www.murray .org/About-Mental -Illness/Mental-H ealth-Conditions http_s://psychcen tral.com/depressi on/the-cognitive- zmitrikf-ov-hlxid ssion#treatments http__s://www.[facility].nih.gov/health/ topics/mental-hea [facility]-medications http__s://www.nam i.org/About-Menta l-Illness/Treatme nts/Mental-Health -Medications educated on all medications, benefits, side effects [...] prescribed by [facility] r/t cannabis use daily 10/14/2024 Generalized anxiety disorder (ICD-10 - F41.1) 1. major depression -obtain labs PCP Abilify 5 mg bedtime plan to retire end of month educated on all medications, benefits, side effects and risk, and educated on depression, anxiety, and mood d/o and educated on compliance of medications, metabolic and movement d/o education appointment's, continue therapy discussion with patient about course of treatmentand patient instructions. Recommend decrease/stop cannabis use as it can negatively impact mood, motivation, anxiety, sleep, focus/concentrati on/memory (vigilance, elasticity, processing and attention); can also contribute to development of psychosis. Cannabis/marijuan a information: http_s://che.nih .gov/publications /drugfacts/cannab is-marijuana http_s://www.[employer]/canna xms-rrt-wmvljpij- marijuana-adhd/ http_s://www.murray .org/About-Mental -Illness/Mental-H ealth-Conditions http_s://psychcen Tyto/depressi on/the-cognitive- nripryux-sw-hcryk ssion#treatments http__s://www.nim h.nih.gov/health/ topics/mental-hea lth-medications http__s://www.nam i.org/About-Menta l-Illness/Treatme nts/Mental-Health -Medications educated on all medications, benefits, side effects [...] disorder - no control substance prescribed by [facility] r/t cannabis use daily Vistaril 50 mg [...] drug therapy -no control substance prescribed by [facility] r/t cannabis use daily 04/12/2024 Major depressive [...] can negatively impact mood, motivation, anxiety, sleep, focus/concentrati on/memory (vigilance, elasticity, processing and attention); can also contribute to development of psychosis. Cannabis/marijuan a information: http_s://che.nih .gov/publications /drugfacts/cannab is-marijuana http_s://www.[employer]/canna pov-rfw-nwtywtks- marijuana-adhd/ http_s://www.murray .org/About-Mental -Illness/Mental-H ealth-Conditions http_s://psychcen Tyto/depressi on/the-cognitive- haelypkt-rn-pwngp ssion#treatments http__s://www.nim .nih.gov/health/ topics/mental-hea lth-medications http__s://www.nam i.org/About-Menta l-Illness/Treatme nts/Mental-Health -Medications educated on all medications, benefits, side effects [...] prescribed by [facility] r/t cannabis use daily 10/14/2024 Major depressive disorder, recurrent, mild (ICD-10 - F33.0) 1. major depression -obtain labs PCP Abilify 5 mg bedtime plan to retire end of month educated on all medications, benefits, side effects and risk, and educated on depression, anxiety, and mood d/o and educated on compliance of medications, metabolic and movement d/o education appointment's, continue therapy discussion with patient about course of treatmentand patient instructions. Recommend decrease/stop cannabis use as it can negatively impact mood, motivation, anxiety, sleep, focus/concentrati on/memory (vigilance, elasticity, processing and attention); can also contribute to development of psychosis. Cannabis/marijuan a information: http_s://che.nih .gov/publications /drugfacts/cannab is-marijuana http_s://www.[employer]/cannmaris slh-cpp-nqtukpab- marijuana-adhd/ http_s://www.murray .org/About-Mental -Illness/Mental-H ealth-Conditions http_s://psychcen tral.com/depressi on/the-cognitive- tjowmkxm-ii-ajzzz ssion#treatments http__s://www.nim .nih.gov/health/ topics/mental-hea lth-medications http__s://www.nam i.org/About-Menta l-Illness/Treatme nts/Mental-Health -Medications educated on all medications, benefits, side effects [...] can negatively impact mood, motivation, anxiety, sleep, focus/concentrati on/memory (vigilance, elasticity, processing and attention); can also contribute to development of psychosis. Cannabis/marijuan a information: http_s://che.nih .gov/publications /drugfacts/cannab is-marijuana http_s://www.[employer]/sheila irg-rrk-ynwaiema- marijuana-adhd/ http_s://www.murray .org/About-Mental -Illness/Mental-H ealth-Conditions http_s://psychcen tral.com/depressi on/the-cognitive- uzsbomtg-xr-mliua ssion#treatments http__s://www.nim .nih.gov/health/ topics/mental-hea [facility]-medications http__s://www.nam i.org/About-Menta l-Illness/Treatme nts/Mental-Health -Medications educated on all medications, benefits, side effects [...] by [facility] r/t cannabis use daily 03/01/2024 Marijuana use [...] can negatively impact mood, motivation, anxiety, sleep, focus/concentrati on/memory (vigilance, elasticity, processing and attention); can also contribute to development of psychosis. Cannabis/marijuan a information: http_s://che.nih .gov/publications /drugfacts/cannab is-marijuana http_s://www.[employer]/trend.lymaris vee-sqn-izmptrkb- marijuana-adhd/ http_s://www.murray .org/About-Mental -Illness/Mental-H ealth-Conditions http_s://psychcen VideoCarel.com/depressi on/the-cognitive- fvfvlkip-cn-ktfmb ssion#treatments http__s://www.nim h.nih.gov/health/ topics/mental-hea lth-medications http__s://www.nam i.org/About-Menta l-Illness/Treatme nts/Mental-Health -Medications educated on all medications, benefits, side effects [...] disorder - no control substance prescribed by [facility] r/t cannabis use daily Increase Vistaril [...] drug therapy -no control substance prescribed by [facility] r/t cannabis use daily 04/12/2024 Intermittent explosive [...] can negatively impact mood, motivation, anxiety, sleep, focus/concentrati on/memory (vigilance, elasticity, processing and attention); can also contribute to development of psychosis. Cannabis/marijuan a information: http_s://che.nih .gov/publications /drugfacts/cannab is-marijuana http_s://www.[employer]/trend.lya abf-hkk-djdczfxs- marijuana-adhd/ http_s://www.murray .org/About-Mental -Illness/Mental-H ealth-Conditions http_s://psychE-Buy/depressi on/the-cognitive- pkmauggz-qy-gfruj ssion#treatments http__s://www.nim .nih.gov/health/ topics/mental-hea lth-medications http__s://www.nam i.org/About-Menta l-Illness/Treatme nts/Mental-Health -Medications educated on all medications, benefits, side effects [...] drug therapy -no control substance prescribed by [facility] r/t cannabis use daily 10/14/2024 Intermittent explosive disorder (ICD-10 - F63.81) 1. major depression -obtain labs PCP Abilify 5 mg bedtime plan to retire end of month educated on all medications, benefits, side effects and risk, and educated on depression, anxiety, and mood d/o and educated on compliance of medications, metabolic and movement d/o education appointment's, continue therapy discussion with patient about course of treatmentand patient instructions. Recommend decrease/stop cannabis use as it can negatively impact mood, motivation, anxiety, sleep, focus/concentrati on/memory (vigilance, elasticity, processing and attention); can also contribute to development of psychosis. Cannabis/marijuan a information: http_s://che.nih .gov/publications /drugfacts/cannab is-marijuana http_s://www.[employer]/sheila sjt-lau-smfzfpdh- marijuana-adhd/ http_s://www.murray .org/About-Mental -Illness/Mental-H ealth-Conditions http_s://psychcen tral.com/depressi on/the-cognitive- gndpxyah-cy-yuxus ssion#treatments http__s://www.nim .nih.gov/health/ topics/mental-hea lth-medications http__s://www.nam i.org/About-Menta l-Illness/Treatme nts/Mental-Health -Medications educated on all medications, benefits, side effects [...] disorder - no control substance prescribed by [facility] r/t cannabis use daily Vistaril 50 mg [...] can negatively impact mood, motivation, anxiety, sleep, focus/concentrati on/memory (vigilance, elasticity, processing and attention); can also contribute to development of psychosis. Cannabis/marijuan a information: http_s://che.nih .gov/publications /drugfacts/cannab is-marijuana http_s://www.[employer]/sheila mxq-bef-yzdavyns- marijuana-adhd/ http_s://www.murray .org/About-Mental -Illness/Mental-H ealth-Conditions http_s://psychcen tral.com/depressi on/the-cognitive- roadqsxb-bd-kjmpg ssion#treatments http__s://www.nim .nih.gov/health/ topics/mental-hea [facility]-medications http__s://www.nam i.org/About-Menta l-Illness/Treatme nts/Mental-Health -Medications educated on all medications, benefits, side effects [...] prescribed by [facility] r/t cannabis use daily 10/14/2024 Marijuana use (ICD-10 - F12.90) 1. major depression -obtain labs PCP Abilify 5 mg bedtime plan to retire end of month educated on all medications, benefits, side effects and risk, and educated on depression, anxiety, and mood d/o and educated on compliance of medications, metabolic and movement d/o education appointment's, continue therapy discussion with patient about course of treatmentand patient instructions. Recommend decrease/stop cannabis use as it can negatively impact mood, motivation, anxiety, sleep, focus/concentrati on/memory (vigilance, elasticity, processing and attention); can also contribute to development of psychosis. Cannabis/marijuan a information: http_s://che.nih .gov/publications /drugfacts/cannab is-marijuana http_s://www.[employer]/cannmaris dwe-jeg-uxrddznw- marijuana-adhd/ http_s://www.murray .org/About-Mental -Illness/Mental-H ealth-Conditions http_s://psychcen Tyto/depressi on/the-cognitive- lnuyutjb-bu-jllgc ssion#treatments http__s://www.nim h.nih.gov/health/ topics/mental-hea lth-medications http__s://www.nam i.org/About-Menta l-Illness/Treatme nts/Mental-Health -Medications educated on all medications, benefits, side effects [...] disorder - no control substance prescribed by [facility] r/t cannabis use daily Vistaril 50 mg [...] drug therapy -no control substance prescribed by [facility] r/t cannabis use daily 03/01/2024 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 [...] can negatively impact mood, motivation, anxiety, sleep, focus/concentrati on/memory (vigilance, elasticity, processing and attention); can also contribute to development of psychosis. Cannabis/marijuan a information: http_s://che.nih .gov/publications /drugfacts/cannab is-marijuana http_s://www.[employer]/trend.lya ziz-ubi-vnrjrcjm- marijuana-adhd/ http_s://www.murray .org/About-Mental -Illness/Mental-H ealth-Conditions http_s://psychE-Buy/depressi on/the-cognitive- kcymwgxs-yn-uascm ssion#treatments http__s://www.nim .nih.gov/health/ topics/mental-hea lth-medications http__s://www.nam i.org/About-Menta l-Illness/Treatme nts/Mental-Health -Medications educated on all medications, benefits, side effects [...] drug therapy -no control substance prescribed by [facility] r/t cannabis use daily 10/14/2024 Other skilled nursing (current) drug therapy (ICD-10 - Z79.899) 1. major depression -obtain labs PCP Abilify 5 mg bedtime plan to retire end of month educated on all medications, benefits, side effects and risk, and educated on depression, anxiety, and mood d/o and educated on compliance of medications, metabolic and movement d/o education appointment's, continue therapy discussion with patient about course of treatmentand patient instructions. Recommend decrease/stop cannabis use as it can negatively impact mood, motivation, anxiety, sleep, focus/concentrati on/memory (vigilance, elasticity, processing and attention); can also contribute to development of psychosis. Cannabis/marijuan a information: http_s://che.nih .gov/publications /drugfacts/cannab is-marijuana http_s://www.[employer]/cannmaris szv-ehy-bnrnslrf- marijuana-adhd/ http_s://www.murray .org/About-Mental -Illness/Mental-H ealth-Conditions http_s://psychcen tral.com/depressi on/the-cognitive- frntogvs-mk-rrwns ssion#treatments http__s://www.nim .nih.gov/health/ topics/mental-hea lth-medications http__s://www.nam i.org/About-Menta l-Illness/Treatme nts/Mental-Health -Medications educated on all medications, benefits, side effects [...] drug therapy -no control substance prescribed by [facility] r/t cannabis use daily 04/12/2024 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 [...] can negatively impact mood, motivation, anxiety, sleep, focus/concentrati on/memory (vigilance, elasticity, processing and attention); can also contribute to development of psychosis. Cannabis/marijuan a information: http_s://che.nih .gov/publications /drugfacts/cannab is-marijuana http_s://www.[employer]/sheila tjf-msa-fdqqnwee- marijuana-adhd/ http_s://www.murray .org/About-Mental -Illness/Mental-H ealth-Conditions http_s://psychcen tral.com/depressi on/the-cognitive- azywawum-vs-hkfyy ssion#treatments http__s://www.[facility].nih.gov/health/ topics/mental-hea [facility]-medications http__s://www.nam i.org/About-Menta l-Illness/Treatme nts/Mental-Health -Medications educated on all medications, benefits, side effects [...] prescribed by [facility] r/t cannabis use daily 10/14/2024 Encounter for screening for cardiovascular disorders (ICD-10 - Z13.6) 1. major depression -obtain labs PCP Abilify 5 mg bedtime plan to retire end of month educated on all medications, benefits, side effects and risk, and educated on depression, anxiety, and mood d/o and educated on compliance of medications, metabolic and movement d/o education appointment's, continue therapy discussion with patient about course of treatmentand patient instructions. Recommend decrease/stop cannabis use as it can negatively impact mood, motivation, anxiety, sleep, focus/concentrati on/memory (vigilance, elasticity, processing and attention); can also contribute to development of psychosis. Cannabis/marijuan a information: http_s://che.nih .gov/publications /drugfacts/cannab is-marijuana http_s://www.[employer]/canna jvi-llc-wsswqzva- marijuana-adhd/ http_s://www.murray .org/About-Mental -Illness/Mental-H ealth-Conditions http_s://psychcen [employer]Carel.com/depressi on/the-cognitive- tyrlncbr-sy-lzbnm ssion#treatments http__s://www.nim h.nih.gov/health/ topics/mental-hea lth-medications http__s://www.nam i.org/About-Menta l-Illness/Treatme nts/Mental-Health -Medications educated on all medications, benefits, side effects [...] drug therapy -no control substance prescribed by [facility] r/t cannabis use daily 10/14/2024 Dietary counseling and surveillance (ICD-10 - Z71.3) 1. major depression -obtain labs PCP Abilify 5 mg bedtime plan to retire end of month educated on all medications, benefits, side effects and risk, and educated on depression, anxiety, and mood d/o and educated on compliance of medications, metabolic and movement d/o education appointment's, continue therapy discussion with patient about course of treatmentand patient instructions. Recommend decrease/stop cannabis use as it can negatively impact mood, motivation, anxiety, sleep, focus/concentrati on/memory (vigilance, elasticity, processing and attention); can also contribute to development of psychosis. Cannabis/marijuan a information: http_s://che.nih .gov/publications /drugfacts/cannab is-marijuana http_s://www.[employer]/canna wyg-nfc-fhmhffnw- marijuana-adhd/ http_s://www.murray .org/About-Mental -Illness/Mental-H ealth-Conditions http_s://psychce[employer]/depressi on/the-cognitive- hsaqqzkl-hk-sqlen ssion#treatments http__s://www.nim h.nih.gov/health/ topics/mental-hea lth-medications http__s://www.nam i.org/About-Menta l-Illness/Treatme nts/Mental-Health -Medications educated on all medications, benefits, side effects [...] disorder - no control substance prescribed by [facility] r/t cannabis use daily Vistaril 50 mg [...] or national office of the Alzheimer's Association (3-459-285-097 0; http://www.alz .org), the Alzheimer's Disease Education and Referral Center (ADEAR) (9-173-315-264 0; http://www.rosalie .nih.gov/Alzhe imers/), 1. Mild recurrent [...] can negatively impact mood, motivation, anxiety, sleep, focus/concentrati on/memory (vigilance, elasticity, processing and attention); can also contribute to development of psychosis. Cannabis/marijuan a information: http_s://che.nih .gov/publications /drugfacts/cannab is-marijuana http_s://www.[employer]/trend.lya oan-vdz-rakarkud- marijuana-adhd/ http_s://www.murray .org/About-Mental -Illness/Mental-H ealth-Conditions http_s://psychE-Buy/depressi on/the-cognitive- xunugmnf-fd-zdhql ssion#treatments http__s://www.[facility].nih.gov/health/ topics/mental-hea lth-medications http__s://www.nam i.org/About-Menta l-Illness/Treatme nts/Mental-Health -Medications educated on all medications, benefits, side effects [...] Next Appt Details Provider Name:Edith Snider , 04/14/2025 01:00:00 PM, [facility] [address], [facility] [address], [place], [address], Insurance Providers Payer Name Payer Address Payer Phone Subscriber Number Group Number Insured Name Patient Relationship to Insured Coverage Start Date Coverage End Date [employer] - Mary [address] [place] [address] [id number] CHARLES WESLEY Self - patient is the insured Medical (General) History Medical History History ICD Code Problems: Generalized anxiety disorder Intermittent explosive disorder Long-term drug therapy Mild recurrent major depression Recurrent major depressive episodes, mod erate , Surgical History Surgery Date(Month/Year) Any surgical history
[2025-01-24 09:33] LABS: Hemoglobin A1C 5.9 % (<5.7)
[2025-01-24 09:43] LABS: MALB Creatinine Ratio 17.6 mg/g (0-30)
[2025-01-24 09:53] LABS: Alanine Aminotransferase 23 U/L (6-50); Albumin Level 4.7 g/dL (3.5-5.1); Alkaline Phosphatase 60 U/L (38-126); Anion Gap 10 mmol/L (4-12); Aspartate Amino Transferase 28 U/L (17-59); Bilirubin,Total 1.0 mg/dL (0.2-1.3); Blood Urea Nitrogen 10 mg/dL (9-20); Calcium 9.5 mg/dL (8.4-10.2); Carbon Dioxide 24 mmol/L (22-30); Chloride 102 mmol/L (98-107); Cholesterol 206 mg/dL (0-200); Estimated Glomerular Filt Rate > 60; Glucose 164 mg/dL (65-110); HDL Direct 37 mg/dL; Potassium 3.7 mmol/L (3.4-5.0); Sodium 136 mmol/L (137-145); Total Protein 7.8 g/dL (6.3-8.2); Triglycerides 187 mg/dL (<150)
== END 2025-01-24 08:37 | disposition home or self-care (01) ==
PROVIDERS: PCP Nurse Practitioner Family; Visit Provider Nurse Practitioner Family
DX: F41.9 Anxiety disorder, unspecified (principal); I10 Essential (primary) hypertension; E78.5 Hyperlipidemia, unspecified; E11.9 Type 2 diabetes mellitus without complications; Z11.59 Encounter for screening for other viral diseases
CPT/HCPCS: 36415; 80053; 80061; 82043; 83036; 86803